=== PATIENT | male | born 1955 | race Caucasian/White ===

== ENCOUNTER 2024-04-23 13:45 | Emergency (ER) | payer MEDICARE, BC, SELFPAY ==
[2024-04-23 13:48] VITALS: BP 128/72; PULSE 73; RESP 16; TEMP 36.5; O2SAT 95
--- NOTE | 2024-04-23 14:34 | ED.GENADULT ---
HPI - General Adult General Chief complaint: Lower Extremity Swelling Stated complaint: L leg swelling Time Seen by Provider: 04/23/24 14:04 History of Present Illness HPI narrative: This 68-year-old male comes in reporting swelling in his left lower extremity. He actually has swelling in both lower extremities but left is greater than right. He states that he did tweak his knee and ankle in the left leg about a week ago. He is ambulatory. He is stating that he lost about 30 lb with change of his diet but noticed over the past week or so that he has gained a few lb. He does have bilateral pedal edema. He does not report any orthopnea or shortness of breath. He denies having any chest pain. The patient is taking Xarelto in management of his chronic atrial fibrillation. Related Data Home Medications ?Medication ?Instructions ?Recorded ?Confirmed [facility] 1 tab PO 04/06/24 04/07/24 levetiracetam 250 mg tablet 750 mg PO BID 04/06/24 04/07/24 loratadine 10 mg tablet (Claritin) 10 mg PO QDAY 04/06/24 04/07/24 losartan 25 mg tablet 50 mg PO QDAY 04/06/24 04/07/24 metoprolol tartrate 25 mg tablet 50 mg PO BID 04/06/24 04/07/24 multivitamin 1 tab PO QAM 04/06/24 04/07/24 rivaroxaban 2.5 mg tablet (Xarelto) 20 mg PO QHS 04/06/24 04/07/24 Previous Rx's ?Medication ?Instructions ?Recorded furosemide 20 mg tablet (Lasix) 20 mg PO DAILY #20 tabs 04/23/24 Allergies Allergy/AdvReac Type Severity Reaction Status Date / Time lisinopril AdvReac Mild Cough Verified 04/07/24 09:50 Review of Systems Status of ROS: Reports: 10 or more systems reviewed and unremarkable except as noted in History and below Narrative: Constitutional: No fevers, no weight gain or loss. Eyes: No discharge. No vision changes. HENT: No congestion, no sore throat, no ear pain. Cardiovascular: No chest pain, no palpitations. Respiratory: No shortness of breath, no wheezes, no cough. Gastrointestinal: No abdominal pain, no vomiting, no diarrhea. Genitourinary: No dysuria, no hematuria. Musculoskeletal: Normal range of motion. Bilateral leg swelling, left greater than right. Skin: No rashes, no pruritis. Neurological: No dizziness, weakness, sensory change, speech change. Endo/Heme/Allergies: No bruising or bleeding. No polydipsia. Pysch: no suicidality, no anxiety, no insomnia. All other systems reviewed and are negative. [facility] Surgical History (Updated 04/02/24 @ 09:25 by Lizzie Pizarro) History of brain surgery (1955) ?Z98.890 - Other specified postprocedural states (ICD-10) History of phacoemulsification of cataract of left eye with intraocular lens implantation (07/30/18) ?Z98.42 - Cataract extraction status, left eye (ICD-10) ?Z96.1 - Presence of intraocular lens (ICD-10) Family History (Updated 04/02/24 @ 09:17 by Lizzie Pizarro) Mother Stroke Social History Smoking Status: Current every day smoker Do you use any of these nicotine containing products: None Second hand tobacco smoke exposure: No How often do you have a drink containing alcohol: never AUDIT-C Alcohol total score: 0 Non-prescribed substance use: denies use Exam Narrative: Exam Narrative: Constitutional: Well-developed, well-nourished, no acute distress. HEENT: Normocephalic, atraumatic. Neck: Normal range of motion. Nontender. Supple. Heart: Regular. No murmurs. Normal rate. Intact distal pulses. Lungs: Clear to auscultation. No chest discomfort. No wheezes, rhonchi, or rales. Abdomen: Normal bowel sounds. Nontender. No rebound tenderness. Genitalia: Deferred. Back: No midline tenderness. Normal range of motion. Extremities: Bilateral large pedal edema, left greater than right. Range of motion is intact. Skin: Intact. No rash. Warm. No erythema or pallor. Neurologic: No altered sensation. No weakness. Alert and oriented. Psychiatric: No suicidality. No anxiety or depression. No insomnia. Nursing notes and vitals signs are reviewed. Const: Vital Signs, click to edit/add: Vital Signs - 24 hr 04/23/24 13:48 Temperature 97.7 F Pulse Rate [Pulse Oximeter] 73 Respiratory Rate 16 Blood Pressure [Ri ght Upper Arm] 128/72 Pulse Oximetry 95 Oxygen Delivery Me thod Room Air Course Vital Signs Vital signs: Initial Vital Signs Temperature 97.7 F 04/23/24 13:48 Temperature Source Temporal Artery Scan 04/23/24 13:48 Pulse Rate 73 04/23/24 13:48 Respiratory Rate 16 04/23/24 13:48 Blood Pressure 128/72 04/23/24 13:48 Blood Pressure Mean 90 04/23/24 13:48 Blood Pressure Position Sitting 04/23/24 13:48 Pulse Oximetry 95 04/23/24 13:48 Oxygen Delivery Method Room Air 04/23/24 13:48 Vital Signs Temperature 97.7 F 04/23/24 13:48 Pulse Rate 73 04/23/24 13:48 Respiratory Rate 16 04/23/24 13:48 Blood Pressure 128/72 04/23/24 13:48 Pulse Oximetry 95 04/23/24 13:48 Oxygen Delivery Method Room Air 04/23/24 13:48 Temperature 97.7 F 04/23/24 13:48 Pulse Rate 73 04/23/24 13:48 Respiratory Rate 16 04/23/24 13:48 Blood Pressure 128/72 04/23/24 13:48 Pulse Oximetry 95 04/23/24 13:48 Oxygen Delivery Method Room Air 04/23/24 13:48 Medical Decision Making MDM Narrative Medical decision making narrative: This patient comes in reporting swelling in his legs. He does have atrial fibrillation and is taking Xarelto. He denies having any chest pain or shortness of breath. He states that he did twist his knee and ankle about about a week ago but does not have any ongoing symptoms. I did discuss the role of ultrasound imaging to rule out blood clot but indicated that he is already therapeutic on a anticoagulant. His symptoms are bilateral and much more typical of pedal edema related to fluid retention. The patient declined any further studies at this time and did receive a prescription for Lasix. I advised him to follow-up with his primary physician for ongoing management. Discharge Plan Discharge Clinical Impression: Pedal edema, Atrial fibrillation Patient Disposition: Home, Self-Care Condition: Stable Additional Instructions: Take Lasix as prescribed and continue other current medications as prescribed. Follow up with MD for ongoing management or return if worsening. Prescriptions: New furosemide [Lasix] 20 mg tablet 20 mg PO DAILY Qty: 20 2RF No Action multivitamin Tablet 1 tab PO QAM loratadine [Claritin] 10 mg tablet 10 mg PO QDAY [facility] 1 tab PO levetiracetam 250 mg tablet 750 mg PO BID losartan 25 mg tablet 50 mg PO QDAY metoprolol tartrate 25 mg tablet 50 mg PO BID Xarelto 2.5 mg tablet 20 mg PO QHS Follow Up/Referrals: Dorothy Pelayo, SALVAGE CLERK, CONSULTING DATABASE ADMINISTRATOR [Primary Care Provider] - Stand Alone Forms: [facility] Info Instructions
[2024-04-23 14:54] VITALS: BP 119/81; PULSE 105; RESP 16
== END 2024-04-23 14:56 | disposition home or self-care (01) ==
LOC: ED 14:56
PROVIDERS: Emergency Provider Emergency Medicine Emergency Medical Services; PCP Nurse Practitioner Family
DX: R60.0 Localized edema (principal); I48.91 Unspecified atrial fibrillation
CPT/HCPCS: 99284

== ENCOUNTER 2024-05-04 11:49 | Outpatient (CLI) | payer MEDICARE, BC, SELFPAY | END 2024-05-04 11:50 | disposition home or self-care (01) | PROVIDERS: PCP Nurse Practitioner Family; Visit Provider Nurse Practitioner Family | DX: R60.0 Localized edema (principal); I10 Essential (primary) hypertension | CPT/HCPCS: 80053; 83880 ==

== ENCOUNTER 2024-05-19 10:25 | Outpatient (RCR) | payer MEDICARE, BC, SELFPAY | END 2024-08-03 14:44 | disposition home or self-care (01) | PROVIDERS: PCP Nurse Practitioner Family; Visit Provider Orthopaedic Surgery | DX: M75.82 Other shoulder lesions, left shoulder (principal); M25.512 Pain in left shoulder; Z51.89 Encounter for other specified aftercare | CPT/HCPCS: 80053; 83735; 83880; 97110; 97161 ==

== ENCOUNTER 2024-06-03 07:58 | Outpatient (CLI) | payer MEDICARE, BC, SELFPAY | END 2024-06-03 07:59 | disposition home or self-care (01) | LOC: RAD 07:59 | PROVIDERS: PCP Nurse Practitioner Family; Visit Provider Nurse Practitioner Family | DX: R60.0 Localized edema (principal); I51.7 Cardiomegaly; I35.0 Nonrheumatic aortic (valve) stenosis; I35.1 Nonrheumatic aortic (valve) insufficiency; I34.0 Nonrheumatic mitral (valve) insufficiency; I48.91 Unspecified atrial fibrillation; R01.1 Cardiac murmur, unspecified | CPT/HCPCS: 93306 ==

== ENCOUNTER 2024-07-11 07:23 | Emergency (ER) | payer MEDICARE, BC, SELFPAY ==
[2024-07-11 07:27] VITALS: BP 141/102; PULSE 84; RESP 20; TEMP 37.1; O2SAT 96; BMI 32.3
--- NOTE | 2024-07-11 08:05 | XR_ITS ---
Patient: SHIREEN AGUILAR Facility:?[facility] Patient ID:?[id number] Site Patient ID:?[id number]. Site :?1955 Study:?XRay-Extremity Right WRIST-07/11/2024 8:45:08 AM Ordering Physician:?Irvin Nielsen Final Report: Indication: Pain and swelling centered at the ulnar styloid. On antibiotics. Technique: A total of three views each of the right hand and right wrist were acquired Comparison: None Findings: Bones: Alignment is normal. No fractures or bone lesions. 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 Soft tissue: Soft tissue swelling. No gas within soft tissues. No radiopaque foreign body Impression: 1. No acute fracture, dislocation or destructive process. 2. Mild arthritic change. 3. Soft tissue swelling. No gas within soft tissues. No radiopaque foreign body. 4. There is no evidence of osteomyelitis by plain film Dictated by Gerry Reyes MD @ 07/11/2024 9:03:46 AM Signed by:?Gerry Reyes MD @07/11/2024 9:03:46 AM (Electronic Signature)
--- NOTE | 2024-07-11 08:05 | XR_ITS ---
Patient: SHIREEN AGUILAR Facility:?[facility] Patient ID:?[id number] Site Patient ID:?[id number]. Site :?1955 Study:?XRay-Extremity Right HAND-07/11/2024 8:44:53 AM Ordering Physician:Cayden Nielsen Final Report: Indication: Pain and swelling centered at the ulnar styloid. On antibiotics. Technique: A total of three views each of the right hand and right wrist were acquired. Comparison: None Findings: Bones: Alignment is normal. No fractures or bone lesions. 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 Soft tissues: Soft tissue swelling. No gas within soft tissues. No radiopaque foreign body Impression: 1. No acute fracture, dislocation or destructive process. 2. Mild arthritic change. 3. Soft tissue swelling. No gas within soft tissues. No radiopaque foreign body. 4. There is no evidence of osteomyelitis by plain film Dictated by Gerry Reyes MD @ 07/11/2024 9:01:13 AM Signed by:?Gerry Reyes MD @07/11/2024 9:01:13 AM (Electronic Signature)
--- OUTSIDE RECORDS SUMMARY | 2024-07-11 08:17 | XMS_ITS | Encounter Summary ---
Author Organization [facility] Address [address] [place] [address] Care Team Providers Care Area Counselor Name Role Phone Margie Dee M.D. Primary Care Provider [phone] Encounter Details Date Type Department Care Team (Late st Contact Info) Description 03/12/2008 Historical Ophthalmology RST OPH Mohini Corona M.D. [address] [place] [address] Social History Tobacco Use Types Packs/Day Years Used Date Smoking Tobacco: Never Assessed Sex and Gender Information Value Date Recorded Sex Assigned at Male 10/06/2022 8:25 PM SILVERING APPLICATOR Legal Sex Male 11:39 PM SILVERING APPLICATOR Gender Identity Male 10/06/2022 8:25 PM SILVERING APPLICATOR Sexual Orientation Straight 10/06/2022 8: 25 PM SILVERING APPLICATOR documented as of this encounter Progress Notes * Mohini Corona M.D. - 03/12/2008 1:07 PM CDT Eye General CHIEF COMPLAINT macular hole HISTORY OF PRESENT ILLNESS Patient notes a blurry spot in center vision of his right eye, noticed about 8 days ago. He has a history of floaters. He has light flashes in his right eye as well. He denies distortion or diplopia. IMPRESSION / REPORT / PLAN OCT: PHOTOS: #1 macular hole right eye #2 mild cataract OU color photos, oct ou FA results: OCT results: right eye: full thickness macular hole; epiretinal membrane; PVD left eye: normal Plan: 20 G PPV MP ICG [id number] gas right eye; 1 week face down. Discussed risks, goals, alternatives, advance directives, and the necessity of other members of the healthcare team participating in the procedure with the patient (or legal territory sales representative and others present during the discussion). The patient understands and wishes to proceed with the procedure. Listed patient for surgery, March 15, 2008, right eye, eye confirmed per patient. Instructions givenorally and written. Discussed gas precautions, including 6 hour stay in the hospital after surgery for an IntraOcularPressure check, and return visit the day following surgery for a post operative check. jap Referred by Gideon Madrigal MD DIAGNOSIS #1 macular hole right eye #2 mild cataract OU CDM Reports - [facility] Id: [id number] Status: Fnl documented in this encounter Plan of Treatment Not on file documented as of this encounter Visit Diagnoses Not on filedocumented in this encounter Additional Health Concerns Infection Onset Date Last Indicated Resolved Time COVID19 Pending 03/08/2024 03/08/2024 03/08/2024 7 :35 AM CDT documented as of this encounter Care Teams Area Counselor Relationship Specialty Start Date End Date Margie Dee M.D. [id number] [place] [phone] PCP - General Family Medicine 03/02/24 documented as of this encounter
--- OUTSIDE RECORDS SUMMARY | 2024-07-11 08:17 | XMS_ITS ---
Author Organization [facility] Address [address] [place] [address] Care Team Providers Care Public Affairs Specialist Name Role Phone Unavailable Unavailable Unavailable Surgery Details Not on file Complications Check Surgery Details section. Procedure Estimated Blood Loss Check Surgery Details section. Procedure Findings Check Surgery Details section. Procedure Specimens Taken Check Surgery Details section.
--- OUTSIDE RECORDS SUMMARY | 2024-07-11 08:17 | XMS_ITS | Clinical Summary ---
Author Organization [facility] Address [address] [place] [id number] Care Team Providers Care Magnetic Prospecting Operator Name Role Phone No Primary/Referring, Phy Primary Care Provider Unavailable Source Comments You are receiving this document as you are listed as the primary care provider,follow-up provider, or the patient has been referred to you for consultation.This is in compliance with the Medicare and[facility] Centercaid EHR Incentive Program,which states Providers who transition their patient to another setting of careor provider of care or refers their patient to another provider of care shouldprovide summary care record for each transition of care or referral. [facility] Allergies No known active allergies Medications Medication Sig Dispensed Refills Start Date End Date Status losartan (COZAAR) 50 MG tablet 12/16/2017 Active omega-3 fatty acids (FISH OIL) 1000 MG capsule Take 2 g by mouth daily. Active metoprolol tartrate (LOPRESSOR) 50 MG tablet Take 1 Tablet (50 mg) by mouth daily. Active rivaroxaban (XARELTO) 20 MG tablet Take 1 Tablet (20 mg) by mouth every evening with a meal. Active multivitamin (THERAGRAN) tablet Take 1 Tablet by mouth daily. Active levETIRAcetam (KEPPRA) 750 MG tablet Take 1 Tablet (750 mg) by mouth two times a day. 180 Tablet 3 06/01/2024 Active Active Problems No known active problems Encounters Date Type Department Care Team Description 06/01/2024 10:00 AM CDT Office Visit Neurology at [facility] [address] [place] [address] Fabio De La Torre MD Seizure disorder (HRC) (Primary Dx) 05/28/2024 Refill Neurology at [address] [place] [address] Fabio De La Torre MD Refill (levETIRAcetam (KEPPRA) 750 MG tablet [Pharmacy Med Name: levETIRAcetam Oral Tablet 750 MG]) from Last 3 Months Social History Tobacco Use Types Packs/Day Years Used Date Smoking Tobacco: Every Day Cigarettes Smokeless Tobacco: Never Tobacco Cessation:Ready to Q uit: Not Asked; Counseling Given: Not Answered Alcohol Use Standard Drinks/Week Comments Not Currently 0 (1 standard drink = 0.6 oz pur e alcohol) Sex and Gender Information Value Date Recorded Sex Assigned at Not on file Gender Identity Not on file Sexual Orientation Not on file Last Filed Vital Signs Vital Sign Reading Time Taken Comments Blood Pressure 127/75 06/01/2024 9:44 AM CDT Pulse 74 06/01/2024 9:44 AM CDT Temperature 36.3 ??C (97.3 ??F) 05/03/2021 12:06 PM C DT Respiratory Rate 14 05/03/2021 12:06 PM CDT Oxygen Saturation 95% 05/03/2021 5:12 AM CDT Inhaled Oxygen Concentration - - Weight 103.4 kg (228 lb) 06/01/2024 9:44 AM CDT Height 175.9 cm (5' 9.25) 04/18/2022 11:38 AM C DT with shoes Body Mass Index 33.43 04/18/2022 11:38 AM CDT Plan of Treatment Upcoming Encounters Date Type Department Care Team (Late st Contact Info) Description 06/01/2025 9:00 AM CDT Appointment Neurology at [address] [place] [address] Fabio De La Torre MD [address] [place] [address] Health Maintenance Due Date Last Done Comments Colon Cancer Screening Plan Due 1955 Hep C Screening (Preventive Services) 1955 Medicare Annual Wellness Visit 1955 Pneumococcal 65+ Yrs (1 - PCV) 1959 Cholesterol 1988 Zoster/Shingles (1 of 2) 2003 Abdominal Aortic Aneurysm (AAA) Screening 2018 COVID-19 Vaccine ( season) 2024 10/11/2022, 01/30/2022, 09/08/2021, Additional history exists Influenza (#1) 2024 DTaP/Tdap/Td (2 - Tdap) 11/04/2025 11/04/2015 RSV (1 - 1-dose 75+ series) 2028 HepA Aged Out No longer eligi ble based on patient's age to complete this topic HepB Aged Out No longer eligi ble based on patient's age to complete this topic Hib Aged Out No longer eligi ble based on patient's age to complete this topic IPV (Polio) Aged Out No longer eligi ble based on patient's age to complete this topic Infant RSV Aged Out No longer eligi ble based on patient's age to complete this topic MCV4 Aged Out No longer eligi ble based on patient's age to complete this topic Care Teams Magnetic Prospecting Operator Relationship Specialty Start Date End Date No Primary/Referring, Riri PCP - General 05/03/21
--- OUTSIDE RECORDS SUMMARY | 2024-07-11 08:17 | XMS_ITS | Clinical Summary ---
Author Organization [facility] Address [address] [place] [address] Care Team Providers Care Roller Skate Assembler Name Role Phone Margie Dee M.D. Primary Care Provider [phone] Source Comments Patient records contain information from all sites at [facility]. For routine questions regarding patient records, call [phone] during business hours, M-F 8:00 AM - 5:00 PM Central Time. Record requests for emergency care only can be directed to [phone] at any time.[facility] Allergies Active Allergy Reactions Criticality Noted Date Comments Lisinopril Cough Low 11/27/2019 Medications * This document contains information received from the source organization and may not represent a complete record from that organization. levETIRAcetam (KEPPRA) 750 mg tablet Take 1 tablet by mouth 2 (two) times a day. 07/31/20 21 Active multivitamin (THERAGRAN) tablet Take 1 tablet by mouth daily. Active vitamins A,C,E-zinc-rn endoscopy per (PRESERVISION AREDS) 7,160 Units-113 mg-100 Units per tablet Take 1 tablet by mouth 2 (two) times a day. Active psyllium (METAMUCIL) powder Take 2 packets by mouth daily. 283 g 12 01/09/20 23 Active Xarelto 20 mg tablet TAKE 1 TABLET EVERY DAY WITH DINNER (APPOINTMENT IS NEEDED) 90 tablet 3 11/18/19 24 Active Additional Information Patient taking differently: 20 mg oral Daily with evening meal, Reported on 03/08/2024 triamcinolone (NASACORT) 55 mcg/actuation nasal sprayIndicatio ns:Rhinitis Acute ADMINISTER 1 SPRAY INTO EACH NOSTRIL DAILY 16.9 mL 1 02/27/20 24 Active polyethylene glycol-electro lytes (GoLYTELY) 236-22.74-6.74 -5.86 gram solutionIndica tions:Screenin g Cancer Colon Drink 1st portion of prep at 6 PM the evening before. 2nd portion must be started 3 hours before and finished 2 hours prior to report time 4000 mL 02/28/20 24 Active nicotine polacrilex (NICORETTE) 2 mg lozenge Dissolve 1 lozenge in mouth (do not bite or chew) every 1 to 2 hours as needed or as directed for nicotine withdrawal symptoms 216 lozenge 3 02/28/20 24 Active metoprolol tartrate (LOPRESSOR) 50 mg tablet Take 1 tablet (50 mg total) by mouth 2 (two) times a day. 180 tablet 3 03/04/20 24 Active benzonatate (TESSALON PERLES) 100 mg capsule Take 1 capsule (100 mg total) by mouth 3 (three) times a day as needed for cough. 15 capsule 03/08/20 24 Active albuterol 90 mcg/actuation inhaler Inhale 2 puffs every 4 (four) hours as needed for shortness of breath. 18 g 03/08/20 24 Active losartan (Cozaar) 50 mg tablet TAKE 1 TABLET (50 MG TOTAL) BY MOUTH DAILY. PATIENT NEEDS LABS FOR FURTHER REFILLS. 90 tablet 06/18/20 24 Active losartan (Cozaar) 50 mg tablet Take 1 tablet (50 mg total) by mouth daily. Patient needs Labs for further refills. 90 tablet 04/01/20 24 024 Discontinued Active Problems Problem Noted Date Diagnosed Date Thoracic Aortic Aneurysm Without Rupture Unspeci fied 04/02/2022 Overview (03/14/2024): Last ECHO 03/30/2022: Mildly enlarged mid ascending aorta diameter of 44 mm. Upper limit of normal based upon age/sex/BSA is approximately 42 mm. Recommended repeat ECHO in 1 year. Hypertrophy Ventricular Left 04/02/2022 Hypertension Essential Primary 02/21/2022 Tobacco Use 02/21/2022 Seizure Disorder 01/30/2022 Atrial Fibrillation Unspecified 01/30/2022 Resolved Problems Problem Noted Date Diagnosed Date Resolved Date Screening Colon Cancer Average Risk 09/21/2019 01/30/2022 Overview (09/21/2019): Added automatically from request for surgery [id number] Encounters Date Type Department Care Team Description 06/17/2024 Refill Department of Family Medicine, [facility], in [address] [id number] Margie Dee M.D. Med Refill from Last 3 Months Immunizations Name Administration Dates Next Due SARS-COV-2 (COVID-19) - PFIZ ER (Discontinued)(12 years or older) 09/08/2021 SARS-COV-2 (COVID-19) - PFIZ ER BIVALENT TS(Discontinued)(12 YEARS OR OLDER) 10/11/2022 SARS-COV-2 (COVID-19) - PFIZ ER TS(Discontinued)(12 years or older) 01/30/2022 Tdap 11/04/2015 Family History Medical History Relation Name Comments Stroke Mother masood Relation Name Status Comments Brother Alive Father Mother masood Social History Tobacco Use Types Packs/Day Years Used Date Smoking Tobacco: Some Days Cigarettes 0.5 20 Smokeless Tobacco: Never Tobacco Cessation:Ready to Q uit: Yes; Counseling Given: Yes Comments:8 cigarettes/day Alcohol Use Standard Drinks/Week Comments Not Currently 0 (1 standard drink = 0.6 oz pur e alcohol) beer once a month [facility] Utilities Answer Date Recorded In the past [address] [facility] [employer], [employer], oil, or water [employer] threatened to shut off services in your home? No 11/12/2023 Humiliation, Afraid, Rape, and Kick questionnair e Answer Date Recorded Within the last year, have y ou been afraid of your partner or ex-partner? No 10/06/2022 Within the last year, have y ou been humiliated or emotionally abused in other ways by your partner or ex-partner? No Within the last year, have y ou been kicked, hit, slapped, or otherwise physically hurt by your partner or ex-partner? No 10/06/2022 Within the last year, have y ou been raped or forced to have any kind of sexual activity by your partner or ex-partner? No 10/06/2022 Social Connection and Isolat ion Panel [NHANES] Answer Date Recorded In a typical week, how many times do you talk on the phone with family, friends, or neighbors? More than three times a week 10/06/2022 How often do you get togethe r with friends or relatives? Twice a week 10/06/2022 How often do you attend chur or uatsdin services? More than 4 times per year 10/06/2022 Do you belong to any clubs o r organizations such as buddhism groups, unions, fraternal or athletic groups, or school groups? No 10/06/2022 How often do you attend meet ings of the clubs or organizations you belong to? Never 10/06/2022 Are you , , di vorced, , never , or living with a partner? 10/06/2022 AUDIT-C Answer Date Recorded Q1: How often do you have a drink containing alc ohol? Never 10/06/2022 Average Number of Drinks Not on file 023 Frequency of Binge Drinking Not on file 09/23 Overall Financial Resource Strain (CARDIA) Answe r Date Recorded How hard is it for you to pa y for the very basics like food, housing, medical care, and heating? Not very hard 10/06/2022 PHQ-2 Answer Date Recorded PHQ-2 Score 0 10/21/2023 [facility] - Occupational Stress Questionnaire Answer Date Recorded Do you feel stress - tense, restless, nervous, or anxious, or unable to sleep at night because your mind is troubled all the time - these days? Not at all 10/06/2022 Exercise Vital Sign Answer Date Recorde d On average, how many days pe r week do you engage in moderate to strenuous exercise (like a brisk walk)? 0 days 11/12/2023 On average, how many minutes do you engage in exercise at this level? 0 min 11/12/2023 Hunger Vital Sign Answer Date Recorded Within the past 12 months, y ou worried that your food would run out before you got the money to buy more. Never true 11/12/19 24 Within the past 12 months, t he food you bought just didn't last and you didn't have money to get more. Never true 11/12/2023 PRAPARE - Transportation Answer Date Re corded In the past 12 months, has l ack of transportation kept you from medical appointments or from getting medications? No 10/25 In the past 12 months, has l ack of transportation kept you from meetings, work, or from getting things needed for daily living? No 11/12/2023 Nutrition Answer Date Recorded On average, how many serving s of fruits and vegetables do you eat per day (serving size is equal to 1 cup or approximately the size of a tennis ball)? 0-2 11/12/2023 Dental Answer Date Recorded Dental: Regular Dentist No 10/06/19 Employment Answer Date Recorded Employment status Retired 11/12/2023 Housing Stability Answer Date Recorded What is your living situation today? [facility] 11/12/2023 Education Answer Date Recorded What is the highest level of school you have completed or the highest degree you have received? 12th grade 10/06/2022 Sex and Gender Information Value Date Recorded Sex Assigned at Male 10/06/2022 8:25 PM MARKETING AUTOMATION SPECIALIST Legal Sex Male 11:39 PM MARKETING AUTOMATION SPECIALIST Gender Identity Male 10/06/2022 8:25 PM MARKETING AUTOMATION SPECIALIST Sexual Orientation Straight 10/06/2022 8: 25 PM MARKETING AUTOMATION SPECIALIST Last Filed Vital Signs Vital Sign Reading Time Taken Comments Blood Pressure 159/92 03/08/2024 7:00 AM CDT Pulse 89 03/08/2024 7:00 AM CDT Temperature 35.6 ??C (96.1 ??F) 03/08/2024 6:38 AM CD T Respiratory Rate 16 02/28/2024 10:26 AM CDT Oxygen Saturation 95% 03/08/2024 7:00 AM CDT Inhaled Oxygen Concentration - - Weight 106 kg (232 lb 12.9 oz) 03/08/2024 6:40 A M CDT Height 177.8 cm (5' 10) 03/08/2024 6:40 AM CDT Body Mass Index 33.4 03/08/2024 6:40 AM CDT Plan of Treatment Health Maintenance Due Date Last Done Comments Abdominal Aortic Aneurysm (A AA) Screen 1953 CT Colonography 1953 Cologuard 1953 FIT 1953 Hepatitis C Screening 1955 Pneumococcal vaccine (65+ ye ars) (1 of 2 - PCV) 1959 Zoster Vaccines (1 of 2) 2003 Colonoscopy 01/10/2015 01/10/2005 Colorectal Cancer Screening 01/10/2015 Creatinine Level (Kidney Fun ction Test) 10/11/2023 10/11/2022, 01/25/2022, 09/14/2019, Additional history exists Potassium Level 10/11/2023 10/11/2022, 05/0 01/2022, 09/14/2019, Additional history exists Sodium Level 10/11/2023 10/11/2022, 05/0 01/2022, 09/14/2019, Additional history exists COVID-19 Vaccine (6 - 2023-2 5 season) 2024 10/11/2022, 01/30/2022, 09/08/2021, Additional history exists Influenza Vaccine (#1) 2024 Visit: Medicare Annual Wellness 11/16/2024 4, 10/11/2022 Fasting Glucose for Diabetes Screening 12/16/2024 12/17/2023, 10/11/2022, 01/25/2022 Office Visit for Blood Press ure Check / Re-check 02/27/2025 02/28/2024 Visit: Chronic Disease, age 18+ 02/27/2025 4 DTaP,Tdap,and Td Vaccines (2 - Td or Tdap) 11/04/2025 11/04/2015 Depression Screening (Annual PHQ-2) Completed 10/21/2023, 10/21/2023 Fall Risk Screen (Annual) Completed 10/21/2023 Procedures Procedure Name Priority Date/Time Associated Diagnosis Comments HEMOGLOBIN A1C, B Routine 12/17/2023 9:3 4 AM CDT Hyperglycemia BASIC METABOLIC PANEL, S/P Routine 10/11/2022 2:11 PM MARKETING AUTOMATION SPECIALIST Hypertension Essential Primary from Last 3 Months or Most Recently Relevant to Health Maintenance Results * (ABNORMAL) Hemoglobin A1c (12/17/2023 9:34 AM CDT) Hemoglobin A1c, B 6.0(H) 4.2 - 5.6 % 12/17/2023 9:56 AM CDT CNFL Comment: Hemoglobin A1c values of 5.7-6.4 percent indicate an increased risk for developing diabetes mellitus. In diabetic patients, HbA1c goals should be discussed with healthcare provider. Blood (Blood, Venous) 12/17/2023 9:34 AM CDT 12/17/2023 9:40 AM CDT us Margie Dee M.D. LAB BLOOD ADD-ON Final Resu lt [facility] [address] [place] [address], [facility] CNFL [facility] [place] [address] * Basic Metabolic Panel (10/11/2022 2:11 PM MARKETING AUTOMATION SPECIALIST) Potassium, P 3.9 3.6 - 5.2 mmol/L 10/11/2022 2:49 PM MARKETING AUTOMATION SPECIALIST CNFL Sodium, P 135 135 - 145 mmol/L 10/11/2022 2:49 PM MARKETING AUTOMATION SPECIALIST CNFL Chloride, P 98 98 - 107 mmol/L 10/11/2022 2:49 PM MARKETING AUTOMATION SPECIALIST CNFL Bicarbonate, P 29 22 - 29 mmol/L 10/11/2022 2:49 PM MARKETING AUTOMATION SPECIALIST CNFL Anion Gap, P 8 7 - 15 10/11/2022 2:49 PM MARKETING AUTOMATION SPECIALIST CNFL BUN (Blood Urea Nitrogen), P 19 8 - 24 mg/dL 10/11/2022 2:49 PM MARKETING AUTOMATION SPECIALIST CNFL Creatinine 0.96 0.74 - 1.35 mg/dL 10/11/2022 2:49 PM MARKETING AUTOMATION SPECIALIST CNFL Estimated GFR (eGFR) 86 >=60 mL/min/BSA 10/11/2022 2:49 PM MARKETING AUTOMATION SPECIALIST CNFL Comment: Estimated GFR calculated using the 2020 CKD_EPI creatinine equation. Calcium, Total, P 9.3 8.8 - 10.2 mg/dL 10/11/2022 2:49 PM MARKETING AUTOMATION SPECIALIST CNFL Glucose, P 106 70 - 140 mg/dL 10/11/2022 2:49 PM MARKETING AUTOMATION SPECIALIST CNFL Blood (Blood, Venous) 10/11/2022 2:11 PM MARKETING AUTOMATION SPECIALIST 10/11/2022 2:17 PM MARKETING AUTOMATION SPECIALIST us Nadia Coles M.D. LAB BLOOD ADD-ON Final Res ult [facility] [address] [place] [address], [place] CNFL [facility] [place] [id number] [place] [id number] from Last 3 Months or Most Recently Relevant to Health Maintenance Insurance [facility] [place] [address] MEDICARE Advance Directives For more information, please contact: [phone] * Full Code (Latest Code Status on File) Date Activated Date Inactivated Comments 11/27/2019 9:04 AM 11/27/2019 11:58 AM Question Answer Comments Full Code: Discussed Care Teams Roller Skate Assembler Relationship Specialty Start Date End Date Margie Dee M.D. [address] [phone] PCP - General Family Medicine 03/02/24
--- OUTSIDE RECORDS SUMMARY | 2024-07-11 08:17 | XMS_ITS | Encounter Summary ---
Author Organization [facility] Address [address] [place] [address] Care Team Providers Care Supervisor Inspecting Name Role Phone Margie Dee M.D. Primary Care Provider [phone] Encounter Details Date Type Department Care Team (Late st Contact Info) Description 05/18/2008 Historical Ophthalmology RST OPH Mohini Corona M.D. [address] [place] [phone] Social History Tobacco Use Types Packs/Day Years Used Date Smoking Tobacco: Never Assessed Sex and Gender Information Value Date Recorded Sex Assigned at Male 10/06/2022 8:25 PM PROGRAM TRAINER Legal Sex Male 11:39 PM PROGRAM TRAINER Gender Identity Male 10/06/2022 8:25 PM PROGRAM TRAINER Sexual Orientation Straight 10/06/2022 8: 25 PM PROGRAM TRAINER documented as of this encounter Progress Notes * Mohini Corona M.D. - 05/18/2008 12:06 PM CDT Eye Postoperative MULTI-VISIT DOCUMENT This document contains multiple patient visits and is available for review in Document Viewer. CDM Reports - EYEPO Id: [id number] Status: Fnl documented in this encounter Plan of Treatment Not on file documented as of this encounter Visit Diagnoses Not on filedocumented in this encounter Additional Health Concerns Infection Onset Date Last Indicated Resolved Time COVID19 Pending 03/08/2024 03/08/2024 03/08/2024 7 :35 AM CDT documented as of this encounter Care Teams Supervisor Inspecting Relationship Specialty Start Date End Date Margie Dee M.D. [address] [place] [phone] PCP - General Family Medicine 03/02/24 documented as of this encounter
--- OUTSIDE RECORDS SUMMARY | 2024-07-11 08:17 | XMS_ITS | Encounter Summary ---
Author Organization [facility] Address [address] [place] [address] Care Team Providers Care Gusset Ripper Name Role Phone No Primary/Referring, Phy Primary Care Provider Unavailable Reason for Visit * Reason Comments Follow-up Encounter Details Date Type Department Care Team (Latest Contact Info) Description 06/01/2024 10:00 AM CDT Office Visit Neurology at [facility] [address] [facility]. [place], [place] [phone] Fabio De La Torre MD [address] [place] [address] Seizure disorder (HRC) (Primary Dx) Social History Tobacco Use Types Packs/Day Years Used Date Smoking Tobacco: Every Day Cigarettes Smokeless Tobacco: Never Alcohol Use Standard Drinks/Week Comments Not Currently 0 (1 standard drink = 0.6 oz pur e alcohol) Sex and Gender Information Value Date Recorded Sex Assigned at Not on file Gender Identity Not on file Sexual Orientation Not on file documented as of this encounter Last Filed Vital Signs Vital Sign Reading Time Taken Comments Blood Pressure 127/75 06/01/2024 9:44 AM CDT Pulse 74 06/01/2024 9:44 AM CDT Temperature - - Respiratory Rate - - Oxygen Saturation - - Inhaled Oxygen Concentration - - Weight 103.4 kg (228 lb) 06/01/2024 9:44 AM CDT Height - - Body Mass Index 33.43 04/18/2022 11:38 AM CDT documented in this encounter Patient Instructions * Patient Instructions* Fabio De La Torre MD - 06/01/2024 10:00 AM CDT Will keep your medication the same and follow up in a year. documented in this encounter Progress Notes * Fabio De La Torre MD - 06/01/2024 10:00 AM CDT Patient Information: Junior Reeves 69 y.o. Date of visit: 06/01/24 IMPRESSION: Single nocturnal seizure RECOMMENDATIONS: Continue Keppra. RTC 1 year Fabio De La Torre MD 06/01/2024, 9:53 AM Department of Neurology [facility] CHIEF COMPLAINT: Chief Complaint Patient presents with Follow-up seizure INTERVAL HISTORY: Single seizure in 2020. No recurrence. Tolerating Keppra. No side effects. No seizure related concerns. REVIEW OF SYSTEMS: All other systems negative except for that mentioned in the history of present illness. MEDICATIONS: Current Outpatient Medications Medication Sig levETIRAcetam (KEPPRA) 750 MG tablet take 1 tablet twice daily losartan (COZAAR) 50 MG tablet metoprolol tartrate (LOPRESSOR) 50 MG tablet Take 1 Tablet (50 mg) by mouth daily. multivitamin (THERAGRAN) tablet Take 1 Tablet by mouth daily. omega-3 fatty acids (FISH OIL) 1000 MG capsule Take 2 g by mouth daily. (Patient not taking: Reported on 06/01/2024) rivaroxaban (XARELTO) 20 MG tablet Take 1 Tablet (20 mg) by mouth every evening with a meal. EXAMINATION: Vitals: 06/01/24 0944 BP: 127/75 Pulse: 74 228 lb (103.4 kg) Estimated body mass index is 33.43 kg/m?? as calculated from the following: Height as of 04/18/22: 5' 9.25 (1.759 m). Weight as of this encounter: 228 lb (103.4 kg). General appearance: No acute distress Mental status: Alert, oriented, speech is fluent PAST MEDICAL FAMILY AND SOCIAL HISTORIES: Past Medical History: Diagnosis Date BP (high blood pressure) (HRC) Caries Heart murmur Social History Socioeconomic History Marital status: Spouse name: Not on file Number of children: Not on file Years of education: Not on file Highest education level: Not on file Occupational History Not on file Tobacco Use Smoking status: Every Day Types: Cigarettes Smokeless tobacco: Never Vaping Use Vaping status: Never Used Substance and Sexual Activity Alcohol use: Not Currently Drug use: Not on file Sexual activity: Not on file Other Topics Concern Not on file Social History Narrative Not on file Social Determinants of Health Financial Resource Strain: Low Risk (10/06/2022) Received from [facility] Overall Financial Resource Strain (CARDIA) Difficulty of Paying Living Expenses: Not very hard Food Insecurity: No Food Insecurity (11/12/2023) Received from [facility] Hunger Vital Sign Worried About Running Out of Food in the Last Year: Never true Ran Out of Food in the Last Year: Never true Transportation Needs: No Transportation Needs (11/12/2023) Received from [facility] PRAPARE - Transportation Lack of Transportation (Medical): No Lack of Transportation (Non-Medical): No Physical Activity: Inactive (11/12/2023) Received from [facility] Exercise Vital Sign Days of Exercise per Week: 0 days Minutes of Exercise per Session: 0 min Stress: No Stress Concern Present (10/06/2022) Received from [facility] [place] [facility] [place] [facility] - Occupational Stress Questionnaire Feeling of Stress : Not at all Social Connections: Moderately Integrated (10/06/2022) Received from [facility] Social Connection and Isolation Panel [NHANES] Frequency of Communication with Friends and Family: More than three times a week Frequency of Social Gatherings with Friends and Family: Twice a week Attends Yarsani Services: More than 4 times per year Active Member of Clubs or Organizations: No Attends Club or Organization Meetings: Never Marital Status: Intimate Partner Violence: Not At Risk (10/06/2022) Received from [facility] Humiliation, Afraid, Rape, and Kick questionnaire Fear of Current or Ex-Partner: No Emotionally Abused: No Physically Abused: No Sexually Abused: No Housing Stability: Low Risk (11/12/2023) Received from [facility] Housing Stability What is your living situation today?: I have a steady place to live No family history on file. documented in this encounter Nursing Notes * Kaylee Gar - 06/01/2024 10:00 AM CDT Received from [place] [facility]. Faxed to [employer] at [phone]. Confirmation received. Form sent to scanning. Thanks. Kaylee Gar 06/02/2024, 7:13 AM documented in this encounter Plan of Treatment Upcoming Encounters Date Type Department Care Team (Late st Contact Info) Description 06/01/2025 9:00 AM CDT Appointment Neurology at [facility] [address] [facility] [place] [address] Fabio De La Torre MD [address] [place] [address] documented as of this encounter Visit Diagnoses Diagnosis Seizure disorder (HRC)- Primary Unspecified epilepsy without mention of intractable epilepsy documented in this encounter Care Teams Gusset Ripper Relationship Specialty Start Date End Date No Primary/Referring, Phy PCP - General 05/03/21 documented as of this encounter
--- OUTSIDE RECORDS SUMMARY | 2024-07-11 08:17 | XMS_ITS | Encounter Summary ---
Author Organization [facility] Address [address] [place] [address] Care Team Providers Care Jacquard Loom Heddles Tier Name Role Phone No Primary/Referring, Phy Primary Care Provider Unavailable Reason for Visit * Reason Comments Refill levETIRAcetam (KEPPR A) 750 MG tablet [Pharmacy Med Name: levETIRAcetam Oral Tablet 750 MG] Encounter Details Date Type Department Care Team (Late st Contact Info) Description 05/28/2024 Refill Neurology at [facility] [place] [address] [facility] [place] [address] Shania Munguia MD [address] [place], [place] [phone] Refill (levETIRAcetam (KEPPRA) 750 MG tablet [Pharmacy Med Name: levETIRAcetam Oral Tablet 750 MG]) Social History Tobacco Use Types Packs/Day Years Used Date Smoking Tobacco: Every Day Cigarettes Smokeless Tobacco: Never Alcohol Use Standard Drinks/Week Comments Not Currently 0 (1 standard drink = 0.6 oz pur e alcohol) Sex and Gender Information Value Date Recorded Sex Assigned at Not on file Gender Identity Not on file Sexual Orientation Not on file documented as of this encounter Nursing Notes * Anne-Marie Lawler, RN - 05/28/2024 8:29 AM CDT levETIRAcetam (KEPPRA) 750 MG tablet refilled per RN's standing order. Last refilled on 03/16/24 for qty 180, refills 0. Last OV with Dr. Nils munguia on 04/09/23 states: Continue Keppra 750 mg BID Next appointment: 06/01/24 Anne-Marie Lawler RN 05/28/2024, 8:29 AM * Tamara Quinones Xrwcomm - 05/28/2024 2:36 AM CDT levETIRAcetam (KEPPRA) 750 MG tablet [Pharmacy Med Name: levETIRAcetam Oral Tablet 750 MG] Miscellaneous - 12 Month Visit 1 -> A qualifying visit was not found within the last 2 years. Last qualifying visit: None Next scheduled visit: None Last ordered by SHANIA MUNGUIA N: 03/16/2024 (73 days ago) QTY: 180, Refills: 0, Sig: take 1 tablettwice daily (unchanged) [employer] Embedded Refills, Reference: [id number], 05/28/2024 2:36:35 AM CDT, Pool: LUZMA NEURO REFILL RN ([id number]) documented in this encounter Plan of Treatment Upcoming Encounters Date Type Department Care Team (Late st Contact Info) Description 06/01/2025 9:00 AM CDT Appointment Neurology at [address] [place] [address] Shania Munguia MD [address] [facility] [place] [place] [phone] documented as of this encounter Visit Diagnoses Not on filedocumented in this encounter Care Teams Jacquard Loom Heddles Tier Relationship Specialty Start Date End Date No Primary/Referring, Phy PCP - General 05/03/21 documented as of this encounter
--- OUTSIDE RECORDS SUMMARY | 2024-07-11 08:17 | XMS_ITS | Encounter Summary ---
Author Organization [facility] [address] [place] [address] Care Team Providers Care Jack Of All Trades Name Role Phone No Primary/Referring, Phy Primary Care Provider Unavailable Encounter Details Date Type Department Care Team (Late st Contact Info) Description 09/30/[address], [address] [place] [address] [facility] MEDICINE PATIENT AUTH TO [facility] CHART Social History Tobacco Use Types Packs/Day Years Used Date Smoking Tobacco: Every Day Smokeless Tobacco: Never Sex and Gender Information Value Date Recorded Sex Assigned at Not on file Gender Identity Not on file Sexual Orientation Not on file documented as of this encounter Plan of Treatment Upcoming Encounters Date Type Department Care Team (Late st Contact Info) Description 06/01/2025 9:00 AM CDT Appointment Neurology at [facility] [address] [facility] [place] [address] Fabio De La Torre MD 295 [place] [address] documented as of this encounter Visit Diagnoses Not on filedocumented in this encounter Care Teams Jack Of All Trades Relationship Specialty Start Date End Date No Primary/Referring, Palmery PCP - General 05/03/21 documented as of this encounter
--- OUTSIDE RECORDS SUMMARY | 2024-07-11 08:17 | XMS_ITS | Encounter Summary ---
Author Organization [facility] Address [address] [place] [address] Care Team Providers Care Steward/Stewardess Second Name Role Phone Margie Dee M.D. Primary Care Provider [phone] Reason for Visit * Reason Comments Med Refill Encounter Details Date Type Department Care Team (Late st Contact Info) Description 06/17/2024 Refill Department of Family Medicine, [facility], in [address] [phone] Margie Dee M.D. [address] [place] [phone] Med Refill Social History Tobacco Use Types Packs/Day Years Used Date Smoking Tobacco: Some Days Cigarettes 0.5 20 Smokeless Tobacco: Never Comments:8 cigarettes/day Alcohol Use Standard Drinks/Week Comments Not Currently 0 (1 standard drink = 0.6 oz pur e alcohol) beer once a month [facility] Utilities Answer Date Recorded In the past 12 months has [employer], gas, oil, or water [employer] threatened to shut off services in your [...] How often do you attend chur or muslim services? More than 4 times per year 10/06/2022 Do you belong to any clubs o r organizations such as bahai groups, unions, fraternal or athletic groups, or [...] Answer Date Recorded PHQ-2 Score 0 10/21/2023 [facility] Health - Occupational Stress Questionnaire Answer Date [...] your living situation today? I have a [facility] place to live 11/12/2023 Education Answer Date Recorded What is the highest level of school you have completed or the highest degree you have received? 12th grade 10/06/2022 Sex and Gender Information Value Date Recorded Sex Assigned at Male 10/06/2022 8:25 PM JIG HAND Legal Sex Male 11:39 PM JIG HAND Gender Identity Male 10/06/2022 8:25 PM JIG HAND Sexual Orientation Straight 10/06/2022 8: 25 PM JIG HAND documented as of this encounter Plan of Treatment Not on file documented as of this encounter Visit Diagnoses Not on filedocumented in this encounter Care Teams Steward/Stewardess Second Relationship Specialty Start Date End Date Margie Dee M.D. SAMI: [phone] [address] [place] [phone] PCP - General Family Medicine 03/02/24 documented as of this encounter
--- OUTSIDE RECORDS SUMMARY | 2024-07-11 08:17 | XMS_ITS | Referral Summary ---
Author Organization [facility] Address [address] [place] [address] Care Team Providers Care Receiving Room Clerk Name Role Phone Margie Dee M.D. Primary Care Provider [phone] Source Comments Patient records contain information from all sites at [facility]. For routine questions regarding patient records, call [phone] during business hours, M-F 8:00 AM - 5:00 PM Central Time. Record requests for emergency care only can be directed to [phone] at any time.[facility] Encounters Date Type Department Care Team Description 06/17/2024 Refill Department of Family Medicine, [facility], in [address] [phone] Margie Dee M.D. Med Refill from Last 3 Months Allergies Active Allergy Reactions Criticality Noted Date Comments Lisinopril Cough Low 11/27/2019 Medications * This document contains information received from the source organization and may not represent a complete record from that organization. levETIRAcetam (KEPPRA) 750 mg tablet Take 1 tablet by mouth 2 (two) times a day. 07/31/20 21 Active multivitamin (THERAGRAN) tablet Take 1 tablet by mouth daily. Active vitamins A,C,E-zinc-coppersmith helper per (PRESERVISION AREDS) 7,160 Units-113 mg-100 Units [...] (09/21/2019): Added automatically from request for surgery [id number] Immunizations Name Administration Dates Next Due SARS-COV-2 (COVID-19) - PFIZ ER (Discontinued)(12 years or older) 09/08/2021 SARS-COV-2 (COVID-19) - PFIZ ER BIVALENT TS(Discontinued)(12 YEARS OR OLDER) 10/11/2022 SARS-COV-2 (COVID-19) - PFIZ ER TS(Discontinued)(12 years or older) 01/30/2022 Tdap 11/04/2015 Social History Tobacco Use Types Packs/Day Years Used Date Smoking Tobacco: Some Days Cigarettes 0.5 20 Smokeless Tobacco: Never Tobacco Cessation:Ready to Q uit: Yes; Counseling Given: Yes Comments:8 cigarettes/day Alcohol Use Standard Drinks/Week Comments Not Currently 0 (1 standard drink = 0.6 oz pur e alcohol) beer once a month [facility] Dizmoities Answer Date Recorded In the past 12 months has [facility] [employer], gas, oil, or water [employer] threatened to shut off services in your [...] 10/06/2022 How often do you attend chur ch or hinduism services? More than 4 times per year 10/06/2022 Do you belong to any clubs o r organizations such as yazidi groups, unions, fraternal or athletic groups, or [...] Answer Date Recorded PHQ-2 Score 0 10/21/2023 [facility] - Occupational Stress Questionnaire Answer Date [...] your living situation today? I have a [facility] place to live 11/12/2023 Education Answer Date Recorded What is the highest level of school you have completed or the highest degree you have received? 12th grade 10/06/2022 Sex and Gender Information Value Date Recorded Sex Assigned at Male 10/06/2022 8:25 PM SLEEP LAB TECHNICIAN Legal Sex Male 11:39 PM SLEEP LAB TECHNICIAN Gender Identity Male 10/06/2022 8:25 PM SLEEP LAB TECHNICIAN Sexual Orientation Straight 10/06/2022 8: 25 PM SLEEP LAB TECHNICIAN Last Filed Vital Signs Vital Sign Reading [...] 03/08/2024 6:40 AM CDT Plan of Treatment Not on file Procedures Procedure Name Priority Date/Time Associated Diagnosis Comments HEMOGLOBIN A1C, B Routine 12/17/2023 9:3 4 AM CDT Hyperglycemia BASIC METABOLIC PANEL, S/P Routine 10/11/2022 2:11 PM SLEEP LAB TECHNICIAN Hypertension Essential Primary from Last 3 Months [...] M.D. LAB BLOOD ADD-ON Final Resu lt [facility] [address] [place] [address], [facility] CN[place] [facility] [address] * Basic Metabolic Panel (10/11/2022 2:11 PM SLEEP LAB TECHNICIAN) Potassium, P 3.9 3.6 - 5.2 mmol/L 10/11/2022 2:49 PM SLEEP LAB TECHNICIAN CNFL Sodium, P 135 135 - 145 mmol/L 10/11/2022 2:49 PM SLEEP LAB TECHNICIAN CNFL Chloride, P 98 98 - 107 mmol/L 10/11/2022 2:49 PM SLEEP LAB TECHNICIAN CNFL Bicarbonate, P 29 22 - 29 mmol/L 10/11/2022 2:49 PM SLEEP LAB TECHNICIAN CNFL Anion Gap, P 8 7 - 15 10/11/2022 2:49 PM SLEEP LAB TECHNICIAN CNFL BUN (Blood Urea Nitrogen), P 19 8 - 24 mg/dL 10/11/2022 2:49 PM SLEEP LAB TECHNICIAN CNFL Creatinine 0.96 0.74 - 1.35 mg/dL 10/11/2022 2:49 PM SLEEP LAB TECHNICIAN CNFL Estimated GFR (eGFR) 86 >=60 mL/min/BSA 10/11/2022 2:49 PM SLEEP LAB TECHNICIAN CNFL Comment: Estimated GFR calculated using the 2020 CKD_EPI creatinine equation. Calcium, Total, P 9.3 8.8 - 10.2 mg/dL 10/11/2022 2:49 PM SLEEP LAB TECHNICIAN CNFL Glucose, P 106 70 - 140 mg/dL 10/11/2022 2:49 PM SLEEP LAB TECHNICIAN CNFL Blood (Blood, Venous) 10/11/2022 2:11 PM SLEEP LAB TECHNICIAN 10/11/2022 2:17 PM SLEEP LAB TECHNICIAN us Nadia Coles M.D. LAB BLOOD ADD-ON Final Res ult [facility] [address] [place] [address], [facility] in [address] [address] from Last 3 Months or Most Recently Relevant to Health Maintenance Insurance [facility] MEDICARE Advance Directives For more information, please contact: [phone] * Full Code (Latest Code Status on File) Date Activated Date Inactivated Comments 11/27/2019 9:04 AM 11/27/2019 11:58 AM Question Answer Comments Full Code: Discussed Care Teams Receiving Room Clerk Relationship Specialty Start Date End Date Margie Dee M.D. [address] [place] [phone] PCP - General Family Medicine 03/02/24
--- OUTSIDE RECORDS SUMMARY | 2024-07-11 08:17 | XMS_ITS | Encounter Summary ---
Author Organization [facility] Address [address] [place] [address] Care Team Providers Care Deliverer Pharmacy Name Role Phone Margie Dee M.D. Primary Care Provider [phone] Encounter Details Date Type Department Care Team (Late st Contact Info) Description 03/24/2024 Clinical Communication [facility] in [address] [phone] Cristine Ruiz, RKennedyN. [address] [place] [phone] Social History Tobacco Use Types Packs/Day Years Used Date Smoking Tobacco: Some Days Cigarettes 0.5 20 Smokeless Tobacco: Never Comments:8 cigarettes/day Alcohol Use Standard Drinks/Week Comments Not Currently 0 (1 standard drink = 0.6 oz pur e alcohol) beer once a month [facility] Utilities Answer Date Recorded In the past [address] [facility] [employer], gas, oil, or water [employer] threatened to shut off services in your [...] How often do you attend chur or jain services? More than 4 times per year [...] Answer Date Recorded PHQ-2 Score 0 10/21/2023 [facility] Occup[facility] ional Health - Occupational [...] your living situation today? I have a [facility] place to live 11/12/2023 Education Answer Date Recorded What is the highest level of school you have completed or the highest degree you have received? 12th grade 10/06/2022 Sex and Gender Information Value Date Recorded Sex Assigned at Male 10/06/2022 8:25 PM FLOWER PLANTER Legal Sex Male 11:39 PM FLOWER PLANTER Gender Identity Male 10/06/2022 8:25 PM FLOWER PLANTER Sexual Orientation Straight 10/06/2022 8: 25 PM FLOWER PLANTER documented as of this encounter Miscellaneous Notes * Telephone Encounter - Cristine Ruiz R.N. - 03/24/2024 8:23 AM CDT Patient calls to get an injection in his left shoulder with Cristine. Last injection 12/24/23. He states he was doing well, shoulder was feeling good and then he kind of forgot to take it easy and went backto his regular use and reinjured it, felt it coming on yesterday and throughout day worsened. He put heat on last night and today it is a little better but far from functional. He is not able to raise arm away from body without pain. He denies numbness and tingling in arm. He is encouraged to use OTC pain meds according to package instructions, ice and rest. Will transfer to DOS to schedule next available with ortho for another injection. He states after this injectionhe is retiring. I let DOS know to add him to the cancellation list as he was given Aug time for next available. N I let him know that if the pain becomes to unbearable to call back for a PC, SDC or head to ED for pain control until can be seen by ortho for injection. Patient verbalized understanding, no other questions at this time. Warm transfer to [facility] was completed. documented in this encounter Plan of Treatment Not on file documented as of this encounter Visit Diagnoses Not on filedocumented in this encounter Care Teams Deliverer Pharmacy Relationship Specialty Start Date End Date Margie Dee M.D. [address] [place] [phone] PCP - General Family Medicine 03/02/24 documented as of this encounter
--- OUTSIDE RECORDS SUMMARY | 2024-07-11 08:18 | XMS_ITS | Encounter Summary ---
Author Organization [facility] Address [address] [place] [address] Care Team Providers Care Facility Mechanic Name Role Phone No Primary/Referring, Phy Primary Care Provider Unavailable Encounter Details Date Type Department Care Team (Late st Contact Info) Description 11/17/2014 Correspondence None No Primary/Referring, Phy STOP BANG DOT MITZI PROTOCOL Social History Tobacco Use Types Packs/Day Years [...] AM CDT Appointment Neurology at [facility] [address] [place] [address] Fabio De La Torre MD [address] [place], [place] [phone] documented as of this encounter Visit Diagnoses Not on filedocumented in this encounter Care Teams Facility Mechanic Relationship Specialty Start Date End Date No Primary/Referring, Phy PCP - General 05/03/21 documented as of this encounter
--- OUTSIDE RECORDS SUMMARY | 2024-07-11 08:18 | XMS_ITS | Encounter Summary ---
Author Organization [facility] Address [address] [place] [address] Care Team Providers Care Tanker Driver Name Role Phone No Primary/Referring, Phy Primary Care Provider Unavailable Encounter Details Date Type Department Care Team (Late st Contact Info) Description 02/09/2014 Correspondence [facility] Occupational and Environmental Medicine [address] [place] [address] REFERRAL AND AUTH Social History Tobacco Use Types Packs/Day Years [...] AM CDT Appointment Neurology at [facility] [address] [facility] [place] [address] Fabio De La Torre MD 295 [place] [address] documented as of this encounter Visit Diagnoses Not on filedocumented in this encounter Care Teams Tanker Driver Relationship Specialty Start Date End Date No Primary/Referring, Phy PCP - General 05/03/21 documented as of this encounter
--- OUTSIDE RECORDS SUMMARY | 2024-07-11 08:18 | XMS_ITS | Encounter Summary ---
Author Organization [facility] [address] [place] [address] Care Team Providers Care Manager Of Human Resources Name Role Phone No Primary/Referring, Phy Primary Care Provider Unavailable Encounter Details Date Type Department Care Team (Latest Contact Info) Description 09/30/2018 Correspondence [facility] [address] [place] [address], [address] [place] [address] REFERRAL AND AUTHORIZATION Social History Tobacco Use Types Packs/Day Years [...] 9:00 AM CDT Appointment Neurology at [facility] [address] [facility] [place] [address] Fabio De La Torre MD 295 [place] [address] documented as of this encounter Visit Diagnoses Not on filedocumented in this encounter Care Teams Manager Of Human Resources Relationship Specialty Start Date End Date No Primary/Referring, Phy PCP - General 05/03/21 documented as of this encounter
--- OUTSIDE RECORDS SUMMARY | 2024-07-11 08:18 | XMS_ITS | Encounter Summary ---
Author Organization [facility] Address [address] [place] [address] Care Team Providers Care Licensed Weigher Name Role Phone No Primary/Referring, Phy Primary Care Provider Unavailable Encounter Details Date Type Department Care Team (Late st Contact Info) Description 11/10/2014 Correspondence None No Primary/Referring, Phy REFERRAL AND AUTH Social History Tobacco Use [...] 06/01/2025 9:00 AM CDT Appointment Neurology at [facility] [address] [facility] [place] [place] [address] Fabio De La Torre MD 295 [place] [address] documented as of this encounter Visit Diagnoses Not on filedocumented in this encounter Care Teams Licensed Weigher Relationship Specialty Start Date End Date No Primary/Referring, Phy PCP - General 05/03/21 documented as of this encounter
--- OUTSIDE RECORDS SUMMARY | 2024-07-11 08:18 | XMS_ITS | Encounter Summary ---
Author Organization [facility] Address [address] [place] [address] Care Team Providers Care Direct Service Worker Name Role Phone No Primary/Referring, Phy Primary Care Provider Unavailable Encounter Details Date Type Department Care Team (Late st Contact Info) Description 03/10/2015 Correspondence [facility] Occupational and Environmental Medicine [address] [place] [address] [facility] MED NOTES Social History Tobacco Use Types Packs/Day Years [...] 9:00 AM CDT Appointment Neurology at [facility] [address] [facility] [place] [address] Fabio De La Torre MD [address] [place] [address] documented as of this encounter Visit Diagnoses Not on filedocumented in this encounter Care Teams Direct Service Worker Relationship Specialty Start Date End Date No Primary/Referring, Phy PCP - General 05/03/21 documented as of this encounter
--- OUTSIDE RECORDS SUMMARY | 2024-07-11 08:18 | XMS_ITS | Encounter Summary ---
Author Organization [facility] Address [address] [place] [address] [place] [address] Care Team Providers Care Printed Circuit Board Assembler Name Role Phone No Primary/Referring, Phy Primary Care Provider Unavailable Encounter Details Date Type Department Care Team (Late st Contact Info) Description 11/17/2014 Correspondence [facility] Occupational and Environmental Medicine [address] [place] [address] Neeru Velasco MD [address] [facility] [place] [address] MEDICAL EXAMINERS REPORT Social History Tobacco Use Types Packs/Day Years Used Date Smoking Tobacco: Never Assessed Sex and Gender Information Value Date Recorded Sex Assigned at Not on file Gender Identity Not on file Sexual Orientation Not on file documented as of this encounter Plan of Treatment Upcoming Encounters Date Type Department Care Team (Late st Contact Info) Description 06/01/2025 9:00 AM CDT Appointment Neurology at [facility] [address] [facility] [place] [address] Fabio De La Torre MD [address] [place] [address] documented as of this encounter Visit Diagnoses Not on filedocumented in this encounter Care Teams Printed Circuit Board Assembler Relationship Specialty Start Date End Date No Primary/Referring, Phy PCP - General 05/03/21 documented as of this encounter
--- OUTSIDE RECORDS SUMMARY | 2024-07-11 08:18 | XMS_ITS | Encounter Summary ---
Author Organization [facility] Address [address] [place] [address] Care Team Providers Care Drawing Instructor Name Role Phone No Primary/Referring, Phy Primary Care Provider Unavailable Encounter Details Date Type Department Care Team (Latest Contact Info) Description 02/09/2014 Consent for Procedure/Treatm ent [facility] Occupational and Environmental Medicine [address] [place] [address] DRUG SCREEN BREATH ALCOHOL TEST RELEASE Social History Tobacco Use Types Packs/Day Years Used Date Smoking Tobacco: Never Assessed Sex and Gender Information Value Date Recorded Sex Assigned at Not on file Gender Identity Not on file Sexual Orientation Not on file documented as of this encounter Plan of Treatment Upcoming Encounters Date Type Department Care Team (Late st Contact Info) Description 06/01/2025 9:00 AM CDT Appointment Neurology at [facility] [address] [facility] [place] [address] Fabio De La Torre MD 295 [place] [address] documented as of this encounter Visit Diagnoses Not on filedocumented in this encounter Care Teams Drawing Instructor Relationship Specialty Start Date End Date No Primary/Referring, Phy PCP - General 05/03/21 documented as of this encounter
--- NOTE | 2024-07-11 08:29 | ED.GENADULT ---
HPI - General Adult General Date Seen: 07/11/24 Chief complaint: Skin/Abscess/Foreign Body Stated complaint: Right hand infection/swollen Time Seen by Provider: 07/11/24 07:59 Source: patient Mode of arrival: ambulatory Limitations: no limitations History of Present Illness HPI narrative: Patient is a 69-year-old male presenting for right hand swelling. He states 6 days ago he started noticing some tightness to the dorsal aspect of his right hand. Started noticing quite a bit swelling 3 days ago and that time was started on Bactrim by his primary care provider. He has not noticed any changes in the swelling since then so was told to come back in for re-evaluation. Does states he has pain to the wrist at about the styloid process region. Has pain with movement and has tenderness to palpation there. Has not had any fevers, chills, weakness, numbness. Denies any systemic symptoms at this time. Has not had any previous surgeries to this hand. Denies symptoms like this ever happening before. The area redness was marked previously by his provider and the redness has not moved since then. There is a little abrasion near his middle knuckle that they think was the source of the cellulitis. No other concerns noted. Does not noticed any swelling or pain to the palmar aspect of the hand. Related Data Home Medications ?Medication ?Instructions ?Recorded ?Confirmed Eye Promise 1 tab PO 04/06/24 07/09/24 levetiracetam 250 mg tablet 750 mg PO BID 04/06/24 07/09/24 loratadine 10 mg tablet (Claritin) 10 mg PO QDAY 04/06/24 07/09/24 losartan 25 mg tablet 50 mg PO QDAY 04/06/24 07/09/24 metoprolol tartrate 25 mg tablet 50 mg PO BID 04/06/24 07/09/24 multivitamin 1 tab PO QAM 04/06/24 07/09/24 B-complex with vitamin C 1 tab PO QDAY 07/02/24 07/09/24 furosemide 40 mg tablet (Lasix) 20 mg PO QDAY 07/02/24 07/09/24 rivaroxaban 2.5 mg tablet (Xarelto) 2.5 mg PO QHS 07/02/24 07/09/24 Previous Rx's ?Medication ?Instructions ?Recorded oxycodone 5 mg tablet 5 mg PO Q6H PRN pain 7 days #28 07/09/24 tabs sulfamethoxazole 800 1 tab PO BID 10 days #20 tabs 07/09/24 mg-trimethoprim 160 mg tablet (Bactrim DS) doxycycline hyclate 100 mg capsule 100 mg PO BID 7 days #14 caps 07/11/24 sulfamethoxazole 800 1 tab PO Q12H 7 days #14 tabs 07/11/24 mg-trimethoprim 160 mg tablet (Bactrim DS) Allergies Allergy/AdvReac Type Severity Reaction Status Date / Time lisinopril AdvReac Mild Cough Verified 07/09/24 14:29 Review of Systems Narrative: Pertinent systems reviewed and were negative unless stated in HPI PFSH PFSH Surgical History History of brain surgery (1952) ?Z98.890 - Other specified postprocedural states (ICD-10) History of phacoemulsification of cataract of left eye with intraocular lens implantation (07/30/18) ?Z98.42 - Cataract extraction status, left eye (ICD-10) ?Z96.1 - Presence of intraocular lens (ICD-10) Family History Mother Stroke Social History Narrative: No alcohol. No illicit drug use. The patient is smoking about 6 cigarettes per day. Smoking Status: Current every day smoker Do you use any of these nicotine containing products: None Second hand tobacco smoke exposure: No How often do you have a drink containing alcohol: never AUDIT-C Alcohol total score: 0 Non-prescribed substance use: denies use service: No Exam Narrative: Exam Narrative: Const: Well-nourished, Well-developed, in mild distress Eyes: PERRL, no conjunctival injection, and symmetrical lids HENT: Atraumatic external nose and ears. Moist mucous membranes. MSK: Swelling noted dorsal aspect of the right wrist with decreased range of motion secondary to pain. Can move the wrist about 45? flexion and extension without pain though. Pain and tenderness are noted at around the styloid process to the wrist. Skin: Erythema and warmth noted to the dorsal aspect of the right wrist Toradol about fiber 6 cm up the forearm. There is a rell does show lower previous erythema was and I see no changes at this time. Neuro: Normal Muscle tone, No focal neurological deficits. Psych: Awake, Alert, & Oriented x3. Appropriate mood and affect. Const: Vital Signs, click to edit/add: Vital Signs - 24 hr 07/11/24 07:27 Temperature 98.8 F Pulse Rate [Pulse Oximeter] 84 Respiratory Rate 20 Blood Pressure [Le ft Upper Arm] 141/102 H Pulse Oximetry 96 Oxygen Delivery Me thod Room Air Course Vital Signs Vital signs: Initial Vital Signs Temperature 98.8 F 07/11/24 07:27 Temperature Source Temporal Artery Scan 07/11/24 07:27 Pulse Rate 84 07/11/24 07:27 Pulse Rhythm Regular 07/11/24 07:27 Respiratory Rate 20 07/11/24 07:27 Blood Pressure 141/102 H 07/11/24 07:27 Blood Pressure Mean 115 H 07/11/24 07:27 Blood Pressure Position Supine 07/11/24 07:27 Pulse Oximetry 96 07/11/24 07:27 Oxygen Delivery Method Room Air 07/11/24 07:27 Vital Signs Temperature 98.8 F 07/11/24 07:27 Pulse Rate 84 07/11/24 07:27 Respiratory Rate 20 07/11/24 07:27 Blood Pressure 141/102 H 07/11/24 07:27 Pulse Oximetry 96 07/11/24 07:27 Oxygen Delivery Method Room Air 07/11/24 07:27 Temperature 98.8 F 07/11/24 07:27 Pulse Rate 84 07/11/24 07:27 Respiratory Rate 20 07/11/24 07:27 Blood Pressure 141/102 H 07/11/24 07:27 Pulse Oximetry 96 07/11/24 07:27 Oxygen Delivery Method Room Air 07/11/24 07:27 Medications Administered Medications: Discontinued Medications Generic Name Dose Route Start Last Admin Trade Name Freq PRN Reason Stop Dose Admin Sodium Chloride 1,000 mls @ 1,000 mls/hr 07/11/24 09:00 07/11/24 10:45 0.9 % Sodium Chloride 1000 Ml IV 07/11/24 09:59 Infused .Q1H AYANNA Infusion Ceftriaxone Sodium 1 gm/ 100 mls @ 200 mls/hr 07/11/24 09:27 07/11/24 10:35 Sodium Chloride IVPB 07/11/24 09:28 Infused ONCE ONE Infusion Medical Decision Making MDM Narrative Medical decision making narrative: Patient is a 69-year-old male presenting for right wrist hand swelling and erythema. There appears to be some type of infection. Differential this time glued cellulitis, septic arthritis, gout. He has no history of gout. Will do a CBC, BMP, CRP, ESR. Will also do x-rays of the hand and wrist. Lab work returned showing a normal white blood cell count and a normal ESR. His CRP is elevated consistent with the expectation of an infection. His sodium was 125. Previous labs show his sodium is review shows his sodium is usually around 129. He is not having any symptoms of this sodium at 125 and do not believe it requires admission. I will give him a L of normal saline though I did speak to the on-call provider for his primary care who states he will speak to the patient's PCP to have labs recheck. I spoke to Orthopedics and Dr. Pierce evaluated the wrist. At this time he thinks is most likely an overlying cellulitis and does not think it is a septic joint. Does recommend 7 days of IV antibiotics and will start him on Rocephin. He will get the 1st dose here in the emergency department and will get the rest done outpatient. He then recommends 7 days of Bactrim and doxycycline afterwards. The patient will follow-up in his office in 1 week. X-rays were reviewed and showed no concerning abnormalities other than some arthritis. Lab Data Labs: Lab Results 07/11/24 07/11/24 Range/Units 08:28 10:44 WBC 9.43 (4.50-11.00) K/uL RBC 4.54 (4.30-5.90) m/uL Hgb 12.8 L (13.5-17.5) gm/dL Hct 38.5 (37.0-53.0) % MCV 85 (80-100) fL MCH 28 (26-34) pg MCHC 33 (32-36) gm/dL RDW Coeff of Ani 14.9 (11.5-15.5) % Plt Count 191 (140-440) K/uL Neut % (Auto) 66.2 (42.0-72.0) % Lymph % (Auto) 13.8 L (20-44) % Douglas % (Auto) 19.1 H (0.0-11.0) % Eos % (Auto) 0.6 (0.0-7.0) % Baso % (Auto) 0.1 (0.0-3.0) % Neut # (Auto) 6.24 (1.7-7.0) K/uL Lymph # (Auto) 1.30 (0.90-2.90) K/uL Douglas # (Auto) 1.80 H (0.00-0.90) K/UL Eos # (Auto) 0.06 (0.00-0.50) K/uL Baso # (Auto) 0.01 (0.00-0.30) K/uL Abs Immat Gran (auto) 0.02 (0.00-0.30) K/uL Imm/Tot Granulo (auto) 0.2 % ESR 10 (2-15) mm/hr Sodium 125 L 128 L (135-149) mmol/L Potassium 3.6 3.7 (3.6-5.1) mmol/L Chloride 90 L 92 L (96-114) mmol/L Carbon Dioxide 26 25 (20-32) mmol/L Anion Gap 9 11 (7-15) mEq/L BUN 14 12 (7-30) mg/dL Creatinine 0.7 0.7 (0.5-1.5) mg/dL Estimated Creat Clear 69.96 69.96 Estimated GFR 99 99 ml/min Glucose 108 104 (60-115) mg/dL Calcium 8.6 8.2 L (8.4-10.6) mg/dL C-Reactive Protein 13.1 H (0.5-1.0) mg/dL Imaging Data X-ray right wrist: Attestation: I have reviewed the pertinent imaging results. Radiologist's impression: 1. No acute fracture, dislocation or destructive process. 2. Mild arthritic change. 3. Soft tissue swelling. No gas within soft tissues. No radiopaque foreign body. 4. There is no evidence of osteomyelitis by plain film Dictated by Gerry Reyes MD @ 07/11/2024 9:03:46 AM X-ray right hand: Attestation: I have reviewed the pertinent imaging results. Radiologist's impression: 1. No acute fracture, dislocation or destructive process. 2. Mild arthritic change. 3. Soft tissue swelling. No gas within soft tissues. No radiopaque foreign body. 4. There is no evidence of osteomyelitis by plain film Dictated by Gerry Reyes MD @ 07/11/2024 9:01:13 AM Discharge Plan Discharge Clinical Impression: Cellulitis of hand, right Patient Disposition: Home, Self-Care Condition: Stable Instructions: Cellulitis (ED) Additional Instructions: You will return daily for the next 6 days for 1 mg of IV ceftriaxone. Tomorrow 08/12/2024 come to the front desk team member and they will send you to the [facility] floor to have your antibiotic done. After that your antibiotics will be done through the infusion center. Asked them tomorrow were you go for that. After a total of 7 days, including today, he would then start on 7 days of Bactrim and doxycycline. These were provided. Follow-up with [facility]. Call them at . Dr. Pierce specifically wants to follow-up with you. Schedule appointment for sometime within the next week. For your low sodium I recommend following up with her primary care provider for lab recheck a on Saturday. I did inform the on-call provider covering for her so they are aware. Prescriptions: New sulfamethoxazole-trimethoprim [Bactrim DS] 800-160 mg tablet 1 tab PO Q12H 7 Days Qty: 14 0RF Rx Instructions: Start the medication on 07/18/2024 and take for 7 days. doxycycline hyclate 100 mg capsule 100 mg PO BID 7 Days Qty: 14 0RF Rx Instructions: Start the medication on 07/18/2024 and take for 7 days. No Action multivitamin Tablet 1 tab PO QAM loratadine [Claritin] 10 mg tablet 10 mg PO QDAY [facility] 1 tab PO levetiracetam 250 mg tablet 750 mg PO BID losartan 25 mg tablet 50 mg PO QDAY metoprolol tartrate 25 mg tablet 50 mg PO BID Xarelto 2.5 mg tablet 2.5 mg PO QHS furosemide [Lasix] 40 mg tablet 20 mg PO QDAY B-complex with vitamin C Tablet 1 tab PO QDAY sulfamethoxazole-trimethoprim [Bactrim DS] 800-160 mg tablet 1 tab PO BID 10 Days Qty: 20 0RF oxycodone 5 mg tablet 5 mg PO Q6H PRN (Reason: pain) 7 Days Qty: 28 0RF Follow Up/Referrals: Dorothy Pelayo APRN, INVESTMENT PROFESSIONAL [Primary Care Provider] - Stand Alone Forms: [employer] Info Instructions
[2024-07-11 08:34] LABS: Basophils Absolute Auto 0.01 K/uL (0.00-0.30); Basophils Percent Auto 0.1 % (0.0-3.0); Eosinophils Absolute Auto 0.06 K/uL (0.00-0.50); Eosinophils Percent Auto 0.6 % (0.0-7.0); Hematocrit 38.5 % (37.0-53.0); Hemoglobin* 12.8 gm/dL (13.5-17.5); Immature Granulocytes Abs Auto 0.02 K/uL (0.00-0.30); Immature Granulocytes Pct Auto 0.2 %; Lymphocytes Percent Auto 13.8 % (20-44); Mean Corpuscular HGB Conc 33 gm/dL (32-36); Mean Corpuscular Hemoglobin 28 pg (26-34); Mean Corpuscular Volume 85 fL (80-100); Monocytes Percent Auto 19.1 % (0.0-11.0); Neutrophils Absolute Auto 6.24 K/uL (1.7-7.0); Neutrophils Percent Auto 66.2 % (42.0-72.0); Platelet Count* 191 K/uL (140-440); RDW Coefficient of Variation % 14.9 % (11.5-15.5); Red Blood Count 4.54 m/uL (4.30-5.90); White Blood Count* 9.43 K/uL (4.50-11.00)
[2024-07-11 08:47] LABS: Slide Review Reflex No
[2024-07-11 08:50] LABS: Chloride* 90 mmol/L (96-114)
[2024-07-11 08:51] LABS: Potassium* 3.6 mmol/L (3.6-5.1); Sodium* 125 mmol/L (135-149)
[2024-07-11 08:53] LABS: Creatinine* 0.7 mg/dL (0.5-1.5); Est. Creatinine Clearance* 69.96; Estimated Glomerular Filt Rate 99 ml/min
[2024-07-11 08:54] LABS: Anion Gap 9 mEq/L (7-15); Blood Urea Nitrogen* 14 mg/dL (7-30); Calcium* 8.6 mg/dL (8.4-10.6); Carbon Dioxide* 26 mmol/L (20-32); Glucose* 108 mg/dL (60-115)
[2024-07-11] MEDS: 0.9 % SODIUM CHLORIDE 1000 ml 1,000 ML IV (09:05)
--- NOTE | 2024-07-11 09:07 | P.ORCN_ITS ---
History of Present Illness HPI Date Seen: 07/11/24 Chief complaint: Right hand infection/swollen Narrative: Umair is a pleasant 69-year-old male. Right-hand dominant. Presents with a complaint of right wrist swelling and pain. Emergency room physician had some concern for possible septic wrist arthritis. Orthopedics was subsequently consulted. Patient reports 6 days ago noticing some tightness in the dorsal aspect of his right hand/wrist. Noted some swelling approximately 3 days ago with some mild erythema. Present to [facility] location 07/08/2024. There, there was some concern for cellulitis. He was given oral Bactrim. Encouraged to monitor things. If it persisted then to consider going to the ED. Thus his presentation today to [place] ED. He reports no significant change since 07/08/2024. He reports no systemic fevers, chills, rigors, or other systemic symptoms. He reports no numbness or tingling. PFSH PFSH Surgical History History of brain surgery (1952) ?Z98.890 - Other specified postprocedural states (ICD-10) History of phacoemulsification of cataract of left eye with intraocular lens implantation (07/30/18) ?Z98.42 - Cataract extraction status, left eye (ICD-10) ?Z96.1 - Presence of intraocular lens (ICD-10) Family History Mother Stroke Social History Narrative: No alcohol. No illicit drug use. The patient is smoking about 6 cigarettes per day. Smoking Status: Current every day smoker Do you use any of these nicotine containing products: None Second hand tobacco smoke exposure: No How often do you have a drink containing alcohol: never AUDIT-C Alcohol total score: 0 Non-prescribed substance use: denies use service: No Meds Home Medications and Allergies Home Medications ?Medication ?Instructions ?Recorded ?Confirmed ?Type [facility] 1 tab PO 04/06/24 07/09/24 History levetiracetam 250 mg tablet 750 mg PO BID 04/06/24 07/09/24 History loratadine 10 mg tablet (Claritin) 10 mg PO QDAY 04/06/24 07/09/24 History losartan 25 mg tablet 50 mg PO QDAY 04/06/24 07/09/24 History metoprolol tartrate 25 mg tablet 50 mg PO BID 04/06/24 07/09/24 History multivitamin 1 tab PO QAM 04/06/24 07/09/24 History B-complex with vitamin C 1 tab PO QDAY 07/02/24 07/09/24 History furosemide 40 mg tablet (Lasix) 20 mg PO QDAY 07/02/24 07/09/24 History rivaroxaban 2.5 mg tablet (Xarelto) 2.5 mg PO QHS 07/02/24 07/09/24 History Allergies Allergy/AdvReac Type Severity Reaction Status Date / Time lisinopril AdvReac Mild Cough Verified 07/09/24 14:29 Ortho Exam Narrative Exam Narrative: Patient is alert and oriented x3. No acute distress. Lying supine in the ED bed. His is present as well in augment some of the history. Right wrist shows 2+ edema to the distal 1/3 forearm down to the fingers. Fingers and wrist are somewhat stiff from not moving for multiple days as well as the combination of swelling. No appreciable effusions within the wrist joint itself. Passive wrist range of motion shows extension and flexion of 15 & 30? pain free, respectively. Even radial and ulnar deviation of 5 and 10? produces no pain. Somewhat limited due to the swelling. Neurologic intact in the radial, ulnar, and median nerve distribution to sensory light touch and motor function. Digit tips pink, warm, brisk cap refill. Nontender throughout the flexor tendons from the finger down through the palm and forearm. He is tender over the radial styloid/scaphoid anatomic snuffbox region. Also tender over the dorsal wrist centrally, but this is consistent with his pain during passive or active wrist flexion as it stretching the dorsal tissues of the wrist. Const Vital Signs, click to edit/add: Vital Signs - 24 hr 07/11/24 07:27 Temperature 98.8 F Pulse Rate [Pulse Oximeter] 84 Respiratory Rate 20 Blood Pressure [Left Upper Arm] 141/102 H Pulse Oximetry 96 Oxygen Delivery Method Room Air Results Labs Labs: Laboratory Results - last 48 hr 07/11/24 08:28 WBC 9.43 RBC 4.54 Hgb 12.8 L Hct 38.5 MCV 85 MCH 28 MCHC 33 RDW Coeff of Ani 14.9 Plt Count 191 Neut % (Auto) 66.2 Lymph % (Auto) 13.8 L Clinch % (Auto) 19.1 H Eos % (Auto) 0.6 Baso % (Auto) 0.1 Neut # (Auto) 6.24 Lymph # (Auto) 1.30 Clinch # (Auto) 1.80 H Eos # (Auto) 0.06 Baso # (Auto) 0.01 Abs Immat Gran (auto) 0.02 Imm/Tot Granulo (auto) 0.2 Sodium 125 L Potassium 3.6 Chloride 90 L Carbon Dioxide 26 Anion Gap 9 BUN 14 Creatinine 0.7 Estimated Creat Clear 69.96 Estimated GFR 99 Glucose 108 Calcium 8.6 Diagnostic results Additional Comments: Three views of the right wrist and three views the right hand from [facility] dated 07/11/2024 were ordered by a different provider and reviewed by me. This demonstrates some osteoarthritic change at the triscaphe articulation. While the joint spaces decently maintained, there is cystic change to the dis kesha scaphoid (more ulnar than radial), but also osteophytosis at the distal scaphoid. Beyond that, generalized soft tissue swelling is noted. Mild pronator quadratus fat pad sign. No acute fractures or avulsions. No signs of AVN. Assessment and Plan Assessment and plan (1) Cellulitis of right wrist: Status: Acute (2) Primary osteoarthritis, right wrist: Status: Acute Plan I had a good discussion today with the patient. His history is very helpful. The fact that he is not showed significant worsening over the last 3 days is encouraging. His swelling and erythema are unchanged, per his report. As I ob serve his wrist today, there is significant swelling and only mild erythema. The fact that I can passively move his wrist whether that is in flexion/extension or radial/ulnar deviation, this is relatively encouraging. My suspicion of a septic arthritis of the right wrist is low. Instead, I do think he is battling cellulitis of the right wrist (dorsal especially). He does have some osteoarthritic change of the STT joint right wrist. This may have gotten flared from all the generalized inflammation in the area. Ultimately, I would favor nonoperative management. This would include IV ant ibiotics x7 days followed by oral antibiotics for another 7 days thereafter. While he is on Bactrim, he can resume that once the IV antibiotics are done, but perhaps could benefit from a dual antibiotic therapy with doxycycline. He would also benefit from a right wrist brace to allow to rest. He cannot take oral NSAIDs as he is currently on a blood thinner for AFib. However, I have encouraged him to ice it regularly. He states understanding. Finally, would like to see him back in my clinic in approximately 1 week. Repeat clinical check. If things worsen, then obviously notify me/the ED sooner. Of note, labs are still pending. White count is normal. But ESR and CRP are pending. I would expect these to be elevated given the suspected cellulitis. I have communicated directly with Dr. Bryan (ED physician) and coordinated the care accordingly.
[2024-07-11 09:11] LABS: C Reactive Protein* 13.1 mg/dL (0.5-1.0); Erythrocyte SedimentationRate* 10 mm/hr (2-15)
[2024-07-11] MEDS: cefTRIAXone 1 GM in 0.9 % SODIUM CHLORIDE Mini-bag 100 ML IVPB (09:46)
[2024-07-11 11:03] LABS: Chloride* 92 mmol/L (96-114); Potassium* 3.7 mmol/L (3.6-5.1); Sodium* 128 mmol/L (135-149)
[2024-07-11 11:05] LABS: Creatinine* 0.7 mg/dL (0.5-1.5); Est. Creatinine Clearance* 69.96; Estimated Glomerular Filt Rate 99 ml/min
[2024-07-11 11:06] LABS: Anion Gap 11 mEq/L (7-15); Blood Urea Nitrogen* 12 mg/dL (7-30); Carbon Dioxide* 25 mmol/L (20-32); Glucose* 104 mg/dL (60-115)
[2024-07-11 11:07] LABS: Calcium* 8.2 mg/dL (8.4-10.6)
[2024-07-11 11:10] VITALS: BP 155/101; RESP 18
== END 2024-07-11 11:28 | disposition home or self-care (01) ==
PROVIDERS: Emergency Provider Student in an Organized Health Care Education/Training Program; PCP Nurse Practitioner Family
DX: L03.113 Cellulitis of right upper limb (principal)
CPT/HCPCS: 36415; 73110; 73130; 80048; 85025; 85651; 86140; 96365; 99283; 99284; J0696; J7030

== ENCOUNTER 2024-07-17 08:30 | Outpatient (RCR) | payer MEDICARE, BC, SELFPAY ==
[2024-07-12] MEDS: cefTRIAXone 1 GM in 0.9 % SODIUM CHLORIDE Mini-bag 100 ML IVPB (11:02)
[2024-07-13 11:42] VITALS: BP 128/81; PULSE 68; RESP 16; TEMP 36.4; O2SAT 97
[2024-07-13] MEDS: cefTRIAXone 1 GM in 0.9 % SODIUM CHLORIDE Mini-bag 100 ML IVPB (12:05)
[2024-07-13 12:09] LABS: Chloride* 93 mmol/L (96-114)
[2024-07-13 12:10] LABS: Sodium* 128 mmol/L (135-149)
[2024-07-13 12:12] LABS: Creatinine* 0.7 mg/dL (0.5-1.5); Estimated Glomerular Filt Rate 99 ml/min
[2024-07-13 12:13] LABS: Anion Gap 8 mEq/L (7-15); Blood Urea Nitrogen* 16 mg/dL (7-30); Calcium* 8.7 mg/dL (8.4-10.6); Carbon Dioxide* 27 mmol/L (20-32); Glucose* 105 mg/dL (60-115)
[2024-07-14 09:53] VITALS: BP 149/85; PULSE 73; RESP 16; TEMP 36.1; O2SAT 97
[2024-07-14] MEDS: cefTRIAXone 1 GM in 0.9 % SODIUM CHLORIDE Mini-bag 100 ML IVPB (10:11)
[2024-07-15 08:28] VITALS: BP 153/79; PULSE 71; RESP 16; TEMP 36.1; O2SAT 97
[2024-07-15] MEDS: SODIUM CHLORIDE 0.9 % (FLUSH) 10 ML SYRINGE IVF (08:40)
[2024-07-15] MEDS: cefTRIAXone 1 GM in 0.9 % SODIUM CHLORIDE Mini-bag 100 ML IVPB (08:40)
[2024-07-16 08:21] VITALS: BP 132/77; PULSE 71; RESP 16; TEMP 35.6; O2SAT 97
[2024-07-16] MEDS: cefTRIAXone 1 GM in 0.9 % SODIUM CHLORIDE Mini-bag 100 ML IVPB (08:36)
[2024-07-16] MEDS: SODIUM CHLORIDE 0.9 % (FLUSH) 10 ML SYRINGE IVF (08:36)
[2024-07-17] MEDS: cefTRIAXone 1 GM in 0.9 % SODIUM CHLORIDE Mini-bag 100 ML IVPB (08:43)
== END 2025-01-08 23:59 | disposition home or self-care (01) ==
LOC: CCIC 08:30
PROVIDERS: PCP Nurse Practitioner Family; Referring Provider Nurse Practitioner Family; Visit Provider Student in an Organized Health Care Education/Training Program
DX: L03.113 Cellulitis of right upper limb (principal)
CPT/HCPCS: 36415; 80048; 96365; G0463; J0696

== ENCOUNTER 2024-07-20 11:31 | Outpatient (CLI) | payer MEDICARE, BC, SELFPAY ==
--- OUTSIDE RECORDS SUMMARY | 2024-07-20 11:36 | XMS_ITS | Encounter Summary ---
Author Organization [facility] Address [address] [place] [id number] Care Team Providers Care Business Support Specialist Name Role Phone Margie Dee M.D. Primary Care Provider [phone] Encounter Details Date Type Department Care Team (Late st Contact Info) Description 05/18/2008 Historical Ophthalmology [facility] O[facility] Mohini Corona M.D. [address] [place] [id number] Social History Tobacco Use Types Packs/Day Years Used Date Smoking Tobacco: Never Assessed Sex and Gender Information Value Date Recorded Sex Assigned at Male 10/06/2022 8:25 PM SILK CONDITIONER Legal Sex Male 11:39 PM SILK CONDITIONER Gender Identity Male 10/06/2022 8:25 PM SILK CONDITIONER Sexual Orientation Straight 10/06/2022 8: 25 PM SILK CONDITIONER documented as of this encounter Progress Notes * Mohini Corona M.D. - 05/18/2008 12:06 PM CDT Eye Postoperative MULTI-VISIT DOCUMENT This document contains multiple patient visits and is available for review in Document Viewer. CDM Reports - EYEPO Id: [id number] Status: Fnl documented in this encounter Plan of Treatment Not on file documented as of this encounter Visit Diagnoses Not on filedocumented in this encounter Additional Health Concerns Infection Onset Date Last Indicated Resolved Time COVID19 Pending 03/08/2024 03/08/2024 03/08/2024 7 :35 AM CDT documented as of this encounter Care Teams Business Support Specialist Relationship Specialty Start Date End Date Margie Dee M.D. [address] [place] [phone] PCP - General Family Medicine 03/02/24 documented as of this encounter
--- OUTSIDE RECORDS SUMMARY | 2024-07-20 11:36 | XMS_ITS | Encounter Summary ---
Author Organization [facility] Address [address] [place] [address] Care Team Providers Care Bridge Painter Helper Name Role Phone No Primary/Referring, Phy Primary Care Provider Unavailable Encounter Details Date Type Department Care Team (Late st Contact Info) Description 02/09/2014 Correspondence [facility] Occupational and Environmental Medicine [address] [place] [id number] REFERRAL AND AUTH Social History Tobacco Use [...] 9:00 AM CDT Appointment Neurology at [facility] [address] [facility] [place] [address] Fabio De La Torre MD [address] [place] [address] documented as of this encounter Visit Diagnoses Not on filedocumented in this encounter Care Teams Bridge Painter Helper Relationship Specialty Start Date End Date No Primary/Referring, Phy PCP - General 05/03/21 documented as of this encounter
--- OUTSIDE RECORDS SUMMARY | 2024-07-20 11:36 | XMS_ITS | Encounter Summary ---
Author Organization [facility] Address [address] [place] [address] Care Team Providers Care Non Cdl Driver Name Role Phone Margie Dee M.D. Primary Care Provider [phone] Encounter Details Date Type Department Care Team (Late st Contact Info) Description 03/12/2008 Historical Ophthalmology [facility] O[facility] Mohini Corona M.D. [address] [place] [phone] Social History Tobacco Use Types Packs/Day Years Used Date Smoking Tobacco: Never Assessed Sex and Gender Information Value Date Recorded Sex Assigned at Male 10/06/2022 8:25 PM TYPESETTER PERFORATOR OPERATOR Legal Sex Male 11:39 PM TYPESETTER PERFORATOR OPERATOR Gender Identity Male 10/06/2022 8:25 PM TYPESETTER PERFORATOR OPERATOR Sexual Orientation Straight 10/06/2022 8: 25 PM TYPESETTER PERFORATOR OPERATOR documented as of this encounter Progress Notes [...] the procedure with the patient (or legal advertising sales representative and others present during the [...] cataract OU CDM Reports - EYEGEN Id: [id number] Status: Fnl documented in this encounter Plan of Treatment Not on file documented as of this encounter Visit Diagnoses Not on filedocumented in this encounter Additional Health Concerns Infection Onset Date Last Indicated Resolved Time COVID19 Pending 03/08/2024 03/08/2024 03/08/2024 7 :35 AM CDT documented as of this encounter Care Teams Non Cdl Driver Relationship Specialty Start Date End Date Margie Dee M.D. [id number] [place] [phone] PCP - General Family Medicine 03/02/24 documented as of this encounter
--- OUTSIDE RECORDS SUMMARY | 2024-07-20 11:36 | XMS_ITS | Encounter Summary ---
Author Organization [facility] Address [address] [place] [address] Care Team Providers Care Crop Consultant Name Role Phone No Primary/Referring, Phy Primary Care Provider Unavailable Encounter Details Date Type Department Care Team (Latest Contact Info) Description 02/09/2014 Consent for Procedure/Treatm ent [facility] Occupational and Environmental Medicine [address] [place] [id number] DRUG SCREEN BREATH ALCOHOL TEST RELEASE Social [...] AM CDT Appointment Neurology at [facility] [address] [place] [address] Fabio De La Torre MD [address] [place] [address] documented as of this encounter Visit Diagnoses Not on filedocumented in this encounter Care Teams Crop Consultant Relationship Specialty Start Date End Date No Primary/Referring, Phy PCP - General 05/03/21 documented as of this encounter
--- OUTSIDE RECORDS SUMMARY | 2024-07-20 11:36 | XMS_ITS | Clinical Summary ---
Author Organization [facility] Address [address] [place] [address] Care Team Providers Care Screw Supervisor Name Role Phone Margie Dee M.D. Primary Care Provider [phone] Source Comments Patient records contain information from all sites at [facility]. For routine questions regarding patient records, call [phone] during business hours, M-F 8:00 AM - 5:00 PM Central Time. Record requests for emergency care only can be directed to [phone] at any time.[facility] Allergies Active Allergy Reactions Criticality Noted Date Comments Lisinopril Cough Low 11/27/2019 Medications * This document contains information received from the source organization and may not represent a complete record from that organization. levETIRAcetam (KEPPRA) 750 mg tablet Take 1 tablet by mouth 2 (two) times a day. 1 Active multivitamin (THERAGRAN) tablet Take 1 tablet by mouth daily. Active vitamins A,C,E-zinc-lars er (PRESERVISION AREDS) 7,160 Units-113 mg-100 Units per tablet Take 1 tablet by mouth 2 (two) times a day. Active psyllium (METAMUCIL) powder Take 2 packets by mouth daily. 283 g 12 3 Active Xarelto 20 mg tablet TAKE 1 TABLET EVERY DAY WITH DINNER (APPOINTMENT IS NEEDED) 90 tablet 3 4 Active Additional Information Patient taking differently: 20 mg oral Daily with evening meal, Reported on 03/08/2024 triamcinolone (NASACORT) 55 mcg/actuation nasal sprayIndication s:Rhinitis Acute ADMINISTER 1 SPRAY INTO EACH NOSTRIL DAILY 16.9 mL 1 4 Active polyethylene glycol-electrol ytes (GoLYTELY) 236-22.74-6.74 -5.86 gram solutionIndicat ions:Screening Cancer Colon Drink 1st portion of prep at 6 PM the evening before. 2nd portion must be started 3 hours before and finished 2 hours prior to report time 4000 mL 4 Active nicotine polacrilex (NICORETTE) 2 mg lozenge Dissolve 1 lozenge in mouth (do not bite or chew) every 1 to 2 hours as needed or as directed for nicotine withdrawal symptoms 216 lozenge 3 4 Active metoprolol tartrate (LOPRESSOR) 50 mg tablet Take 1 tablet (50 mg total) by mouth 2 (two) times a day. 180 tablet 3 4 Active benzonatate (TESSALON PERLES) 100 mg capsule Take 1 capsule (100 mg total) by mouth 3 (three) times a day as needed for cough. 15 capsule 4 Active albuterol 90 mcg/actuation inhaler Inhale 2 puffs every 4 (four) hours as needed for shortness of breath. 18 g 4 Active losartan (Cozaar) 50 mg tablet TAKE 1 TABLET (50 MG TOTAL) BY MOUTH DAILY. PATIENT NEEDS LABS FOR FURTHER REFILLS. 90 tablet 4 Active Active Problems Problem Noted Date Diagnosed Date [...] (09/21/2019): Added automatically from request for surgery [id number] Encounters Date Type Department Care Team Description 06/17/2024 Refill Department of Family Medicine, [facility], in [address] [address] Margie Dee M.D. Med Refill [...] alcohol) beer once a month [facility] Buttonities Answer Date Recorded In the past 12 months has [employer], gas, oil, or water [employer] threatened to shut off services in your [...] often do you attend chur ch or roman catholic services? More than 4 times per year 10/06/2022 Do you belong to any clubs o r organizations such as congregational groups, unions, fraternal or athletic groups, or [...] Answer Date Recorded PHQ-2 Score 0 10/21/2023 [facility] of Occupat ional Health - Occupational Stress [...] Date Recorded Dental: Regular Dentist No 10/06/19 23 Employment Answer Date Recorded Employment status Retired 11/12/2023 Housing Stability Answer Date Recorded What is your living situation today? I have a [facility] place to live 11/12/2023 Education Answer Date Recorded What is the highest level of school you have completed or the highest degree you have received? 12th grade 10/06/2022 Sex and Gender Information Value Date Recorded Sex Assigned at Male 10/06/2022 8:25 PM HAND FOLDER Legal Sex Male 11:39 PM HAND FOLDER Gender Identity Male 10/06/2022 8:25 PM HAND FOLDER Sexual Orientation Straight 10/06/2022 8: 25 PM HAND FOLDER Last Filed Vital Signs Vital Sign Reading [...] 01/2022, 09/14/2019, Additional history exists COVID-19 Vaccine ( - 2023-2 5 season) 2024 10/11/2022, 01/30/2022, 09/08/2021, Additional history exists Influenza Vaccine (#1) 2024 Visit: Medicare Annual Wellness 11/16/2024 4, 10/11/2022 Fasting Glucose for Diabetes Screening 12/16/2024 12/17/2023, 10/11/2022, 01/25/2022 Office Visit for Blood Press ure Check / Re-check 02/27/2025 02/28/2024 Visit: Chronic Disease, age 18+ 02/27/2025 DTaP,Tdap,and Td Vaccines (2 - Td or Tdap) 11/04/2025 11/04/2015 Depression Screening (Annual PHQ-2) Completed 10/21/2023, 10/21/2023 Fall Risk Screen (Annual) Completed 10/21/2023 Procedures Procedure Name Priority Date/Time Associated Diagnosis Comments HEMOGLOBIN A1C, B Routine 12/17/2023 9:3 4 AM CDT Hyperglycemia BASIC METABOLIC PANEL, S/P Routine 10/11/2022 2:11 PM HAND FOLDER Hypertension Essential Primary from Last 3 Months [...] M.D. LAB BLOOD ADD-ON Final Resu lt [facility] [address] [place] [address], [facility] CNFL [place] [address] * Basic Metabolic Panel (10/11/2022 2:11 PM HAND FOLDER) Potassium, P 3.9 3.6 - 5.2 mmol/L 10/11/2022 2:49 PM HAND FOLDER CNFL Sodium, P 135 135 - 145 mmol/L 10/11/2022 2:49 PM HAND FOLDER CNFL Chloride, P 98 98 - 107 mmol/L 10/11/2022 2:49 PM HAND FOLDER CNFL Bicarbonate, P 29 22 - 29 mmol/L 10/11/2022 2:49 PM HAND FOLDER CNFL Anion Gap, P 8 7 - 15 10/11/2022 2:49 PM HAND FOLDER CNFL BUN (Blood Urea Nitrogen), P 19 8 - 24 mg/dL 10/11/2022 2:49 PM HAND FOLDER CNFL Creatinine 0.96 0.74 - 1.35 mg/dL 10/11/2022 2:49 PM HAND FOLDER CNFL Estimated GFR (eGFR) 86 >=60 mL/min/BSA 10/11/2022 2:49 PM HAND FOLDER CNFL Comment: Estimated GFR calculated using the 2020 CKD_EPI creatinine equation. Calcium, Total, P 9.3 8.8 - 10.2 mg/dL 10/11/2022 2:49 PM HAND FOLDER CNFL Glucose, P 106 70 - 140 mg/dL 10/11/2022 2:49 PM HAND FOLDER CNFL Blood (Blood, Venous) 10/11/2022 2:11 PM HAND FOLDER 10/11/2022 2:17 PM HAND FOLDER us Nadia Coles M.D. LAB BLOOD ADD-ON Final Res ult [facility] [address] [place] [address], [place] CNFL [facility] in [place] [address] [place] [address] from Last 3 Months or Most Recently Relevant to Health Maintenance Insurance * Guarantor: Junior Reeves Account Type Relation to Patient Date of Phone Billing Address Personal/Family Self [address] [place] [address] [place] [address] [facility] [place] [address] MEDICARE Advance Directives For more information, please contact: [phone] * Full Code (Latest Code Status on File) Date Activated Date Inactivated Comments 11/27/2019 9:04 AM 11/27/2019 11:58 AM Question Answer Comments Full Code: Discussed Care Teams Screw Supervisor Relationship Specialty Start Date End Date Margie Dee M.D. [address] [place] [phone] PCP - General Family Medicine 03/02/24
--- OUTSIDE RECORDS SUMMARY | 2024-07-20 11:36 | XMS_ITS | Encounter Summary ---
Author Organization [facility] Address [address] [place] [address] Care Team Providers Care Associate Curator Name Role Phone No Primary/Referring, Phy Primary [...] AM CDT Appointment Neurology at [facility] [address] [place] [address] Fabio De La Torre MD 295 [place], [place] [phone] documented as of this encounter Visit Diagnoses Not on filedocumented in this encounter Care Teams Associate Curator Relationship Specialty Start Date End Date No Primary/Referring, Phy PCP - General 05/03/21 documented as of this encounter
--- OUTSIDE RECORDS SUMMARY | 2024-07-20 11:36 | XMS_ITS ---
Author Organization [facility] Address [address] [place] [address] Care Team Providers Care Technical Assistance Consultant Name Role Phone Unavailable Unavailable Unavailable Surgery Details Not on file Complications Check Surgery Details section. Procedure Estimated Blood Loss Check Surgery Details section. Procedure Findings Check Surgery Details section. Procedure Specimens Taken Check Surgery Details section.
--- OUTSIDE RECORDS SUMMARY | 2024-07-20 11:36 | XMS_ITS | Encounter Summary ---
Author Organization [facility] [address] [place] [address] Care Team Providers Care Network Relay Tester Name Role Phone No Primary/Referring, Phy Primary Care Provider Unavailable Encounter Details Date Type Department Care Team (Latest Contact Info) Description 09/30/2018 Correspondence [facility] [address] [place] [address], [address] [place] [address] REFERRAL AND AUTHORIZATION Social History Tobacco Use [...] 06/01/2025 9:00 AM CDT Appointment Neurology at [facility] [address] [facility] [place] [address] Fabio De La Torre MD 295 [place] [address] documented as of this encounter Visit Diagnoses Not on filedocumented in this encounter Care Teams Network Relay Tester Relationship Specialty Start Date End Date No Primary/Referring, Phy PCP - General 05/03/21 documented as of this encounter
--- OUTSIDE RECORDS SUMMARY | 2024-07-20 11:36 | XMS_ITS | Clinical Summary ---
Author Organization Pending sale to [facility] Address [address] [place] [address] Care Team Providers Care Industrial Engineering Technologist Name Role Phone No Primary/Referring, Phy Primary Care Provider Unavailable Source Comments You are receiving this document as you are listed as the primary care provider,follow-up provider, or the patient has been referred to you for consultation.This is in compliance with the Medicare and[facility] EHR Incentive Program,which states Providers who transition their patient to another setting of careor provider of care or refers their patient to another provider of care shouldprovide summary care record for each transition of care or referral. Pending sale to [facility] Allergies No known active allergies Medications Medication [...] AM CDT Office Visit Neurology at [facility] [address] [place] [address] Fabio De La Torre MD Seizure disorder (HRC) (Primary Dx) 05/28/2024 Refill Neurology at [address] [place] [address] Fabio De La Torre MD Refill (levETIRAcetam [...] 06/01/2025 9:00 AM CDT Appointment Neurology at [address] [place] [address] Fabio De La Torre MD 295 [place] [address] Health Maintenance Due Date Last Done Comments [...] age to complete this topic Care Teams Industrial Engineering Technologist Relationship Specialty Start Date End Date No Primary/Referring, Riri PCP - General 05/03/21
--- OUTSIDE RECORDS SUMMARY | 2024-07-20 11:36 | XMS_ITS | Referral Summary ---
Author Organization [facility] Address [address] [place] [address] Care Team Providers Care Lacquer Sizer Name Role Phone Margie Dee M.D. Primary Care Provider [phone] Source Comments Patient records contain information from all sites at [facility]. For routine questions regarding patient records, call [phone] during business hours, M-F 8:00 AM - 5:00 PM Central Time. Record requests for emergency care only can be directed to [phone] at any time.[facility] Encounters Date Type Department Care Team Description 06/17/2024 Refill Department of Family Medicine, [facility], in [address] [address] Margie Dee M.D. Med Refill [...] (09/21/2019): Added automatically from request for surgery [id number] Immunizations Name Administration Dates Next Due SARS-COV-2 [...] pur e alcohol) beer once a month [facility] [employer] Answer Date Recorded In the past 12 months has e [employer], gas, oil, or water [facility] threatened to shut off services in your [...] often do you attend chur ch or jew services? More than 4 times per year 10/06/2022 Do you belong to any clubs o r organizations such as gnosticist groups, unions, fraternal or athletic groups, or [...] Answer Date Recorded PHQ-2 Score 0 10/21/2023 [facility] of Occupat ional Health - Occupational Stress [...] your living situation today? I have a [facility] place to live 11/12/2023 Education Answer Date Recorded What is the highest level of school you have completed or the highest degree you have received? 12th grade 10/06/2022 Sex and Gender Information Value Date Recorded Sex Assigned at Male 10/06/2022 8:25 PM PUMP SERVICE SUPERVISOR Legal Sex Male 11:39 PM PUMP SERVICE SUPERVISOR Gender Identity Male 10/06/2022 8:25 PM PUMP SERVICE SUPERVISOR Sexual Orientation Straight 10/06/2022 8: 25 PM PUMP SERVICE SUPERVISOR Last Filed Vital Signs Vital Sign Reading [...] METABOLIC PANEL, S/P Routine 10/11/2022 2:11 PM PUMP SERVICE SUPERVISOR Hypertension Essential Primary from Last 3 Months [...] M.D. LAB BLOOD ADD-ON Final Resu lt [facility] [address] [place] [address], [facility] [place] [address] * Basic Metabolic Panel (10/11/2022 2:11 PM PUMP SERVICE SUPERVISOR) Potassium, P 3.9 3.6 - 5.2 mmol/L 10/11/2022 2:49 PM PUMP SERVICE SUPERVISOR CNFL Sodium, P 135 135 - 145 mmol/L 10/11/2022 2:49 PM PUMP SERVICE SUPERVISOR CNFL Chloride, P 98 98 - 107 mmol/L 10/11/2022 2:49 PM PUMP SERVICE SUPERVISOR CNFL Bicarbonate, P 29 22 - 29 mmol/L 10/11/2022 2:49 PM PUMP SERVICE SUPERVISOR CNFL Anion Gap, P 8 7 - 15 10/11/2022 2:49 PM PUMP SERVICE SUPERVISOR CNFL BUN (Blood Urea Nitrogen), P 19 8 - 24 mg/dL 10/11/2022 2:49 PM PUMP SERVICE SUPERVISOR CNFL Creatinine 0.96 0.74 - 1.35 mg/dL 10/11/2022 2:49 PM PUMP SERVICE SUPERVISOR CNFL Estimated GFR (eGFR) 86 >=60 mL/min/BSA 10/11/2022 2:49 PM PUMP SERVICE SUPERVISOR CNFL Comment: Estimated GFR calculated using the 2020 CKD_EPI creatinine equation. Calcium, Total, P 9.3 8.8 - 10.2 mg/dL 10/11/2022 2:49 PM PUMP SERVICE SUPERVISOR CNFL Glucose, P 106 70 - 140 mg/dL 10/11/2022 2:49 PM PUMP SERVICE SUPERVISOR CNFL Blood (Blood, Venous) 10/11/2022 2:11 PM PUMP SERVICE SUPERVISOR 10/11/2022 2:17 PM PUMP SERVICE SUPERVISOR us Nadia Coles M.D. LAB BLOOD ADD-ON Final Res ult [facility] [address] [place] [address], [facility] CNFL in [address] [place] [address] from Last 3 Months or Most Recently Relevant to Health Maintenance Insurance [facility] MEDICARE Advance Directives For more information, please contact: [phone] * Full Code (Latest Code Status on File) Date Activated Date Inactivated Comments 11/27/2019 9:04 AM 11/27/2019 11:58 AM Question Answer Comments Full Code: Discussed Care Teams Lacquer Sizer Relationship Specialty Start Date End Date Margie Dee M.D. [address] [place] [phone] PCP - General Family Medicine 03/02/24
--- OUTSIDE RECORDS SUMMARY | 2024-07-20 11:36 | XMS_ITS | Encounter Summary ---
Author Organization [facility] Address [address] [place] [address] [place] [address] Care Team Providers Care Operation Supervisor Name Role Phone No Primary/Referring, Phy Primary Care Provider Unavailable Encounter Details Date Type Department Care Team (Late st Contact Info) Description 11/17/2014 Correspondence [facility] Occupational and Environmental Medicine [address] [place] [address] Neeru Velasco MD [address] [facility] [place] [address] MEDICAL EXAMINERS REPORT Social History Tobacco Use [...] AM CDT Appointment Neurology at [facility] [address] [facility] [address] Fabio De La Torre MD 295 [place] [address] documented as of this encounter Visit Diagnoses Not on filedocumented in this encounter Care Teams Operation Supervisor Relationship Specialty Start Date End Date No Primary/Referring, Phy PCP - General 05/03/21 documented as of this encounter
--- OUTSIDE RECORDS SUMMARY | 2024-07-20 11:36 | XMS_ITS | Encounter Summary ---
Author Organization [facility] Address [address] [place] [address] Care Team Providers Care Payroll Officer Name Role Phone No Primary/Referring, Phy Primary Care Provider Unavailable Reason for Visit * Reason Comments Follow-up Encounter Details Date Type Department Care Team (Latest Contact Info) Description 06/01/2024 10:00 AM CDT Office Visit Neurology at [facility] [address] [facility] [place] [address] Fabio De La Torre MD 295 [place] [address] Seizure disorder (HRC) (Primary Dx) Social History [...] MD 06/01/2024, 9:53 AM Department of Neurology [facility] CHIEF COMPLAINT: Chief Complaint Patient presents with [...] Resource Strain: Low Risk (10/06/2022) Received from [facility] Overall Financial Resource Strain (CARDIA) Difficulty of Paying Living Expenses: Not very hard Food Insecurity: No Food Insecurity (11/12/2023) Received from [facility] Hunger Vital Sign Worried About Running Out of Food in the Last Year: Never true Ran Out of Food in the Last Year: Never true Transportation Needs: No Transportation Needs (11/12/2023) Received from [facility] PRAPARE - Transportation Lack of Transportation (Medical): No Lack of Transportation (Non-Medical): No Physical Activity: Inactive (11/12/2023) Received from [facility] Exercise Vital Sign Days of Exercise per Week: 0 days Minutes of Exercise per Session: 0 min Stress: No Stress Concern Present (10/06/2022) Received from [facility] [place] of Occupational Health - Occupational Stress Questionnaire Feeling of Stress : Not at all Social Connections: Moderately Integrated (10/06/2022) Received from [facility] Social Connection and Isolation Panel [NHANES] Frequency of Communication with Friends and Family: More than three times a week Frequency of Social Gatherings with Friends and Family: Twice a week Attends Scientology Services: More than 4 times per year Active Member of Clubs or Organizations: No Attends Club or Organization Meetings: Never Marital Status: Intimate Partner Violence: Not At Risk (10/06/2022) Received from [facility] Humiliation, Afraid, Rape, and Kick questionnaire Fear of Current or Ex-Partner: No Emotionally Abused: No Physically Abused: No Sexually Abused: No Housing Stability: Low Risk (11/12/2023) Received from [facility] Housing Stability What is your living situation today?: I have a steady place to live No family history on file. documented in this encounter Nursing Notes * Kaylee Gar - 06/01/2024 10:00 AM CDT Received from [place] [facility]. Faxed to [facility] at [phone]. Confirmation received. Form sent to scanning. Thanks. Kaylee Gar 06/02/2024, 7:13 AM documented in this encounter Plan of Treatment Upcoming Encounters Date Type Department Care Team (Late st Contact Info) Description 06/01/2025 9:00 AM CDT Appointment Neurology at [facility] [address] [facility] [place] [address] Fabio De La Torre MD [address] [place] [address] documented as of this encounter Visit Diagnoses Diagnosis Seizure disorder (HRC)- Primary Unspecified epilepsy without mention of intractable epilepsy documented in this encounter Care Teams Payroll Officer Relationship Specialty Start Date End Date No Primary/Referring, Phy PCP - General 05/03/21 documented as of this encounter
--- OUTSIDE RECORDS SUMMARY | 2024-07-20 11:36 | XMS_ITS | Encounter Summary ---
Author Organization [facility] Address [address] [place] [address] Care Team Providers Care Multiple Effect Evaporator Operator Name Role Phone No Primary/Referring, Phy Primary Care Provider Unavailable Encounter Details Date Type Department Care Team (Late st Contact Info) Description 03/10/2015 Correspondence [facility] Occupational and Environmental Medicine [address] [place] [address] [facility] MED NOTES Social History Tobacco Use Types [...] AM CDT Appointment Neurology at [facility] [address] [place] [address] Fabio De La Torre MD 295 [place] [address] documented as of this encounter Visit Diagnoses Not on filedocumented in this encounter Care Teams Multiple Effect Evaporator Operator Relationship Specialty Start Date End Date No Primary/Referring, Phy PCP - General 05/03/21 documented as of this encounter
--- OUTSIDE RECORDS SUMMARY | 2024-07-20 11:36 | XMS_ITS | Encounter Summary ---
Author Organization [facility] Address [address] [place] [address] Care Team Providers Care Lead Javascript Developer Name Role Phone No Primary/Referring, Phy Primary Care Provider Unavailable Reason for Visit * Reason Comments Refill levETIRAcetam (KEPPR A) 750 MG tablet [Pharmacy Med Name: levETIRAcetam Oral Tablet 750 MG] Encounter Details Date Type Department Care Team (Late st Contact Info) Description 05/28/2024 Refill Neurology at [facility] [place] [address] [place] [address] Shania Munguia MD 295 [place], [place] [phone] Refill (levETIRAcetam (KEPPRA) 750 MG tablet [Pharmacy [...] daily (unchanged) [employer] Embedded Refills, Reference: [id number], 05/28/2024 2:36:35 AM CDT, Pool: LUZMA NEURO REFILL RN ([id number]) documented in this encounter Plan of Treatment Upcoming Encounters Date Type Department Care Team (Late st Contact Info) Description 06/01/2025 9:00 AM CDT Appointment Neurology at [address] [place] [address] Shania Munguia MD [address] [place] [id number] documented as of this encounter Visit Diagnoses Not on filedocumented in this encounter Care Teams Lead Javascript Developer Relationship Specialty Start Date End Date No Primary/Referring, Phy PCP - General 05/03/21 documented as of this encounter
--- OUTSIDE RECORDS SUMMARY | 2024-07-20 11:36 | XMS_ITS | Encounter Summary ---
Author Organization [facility] Address [address] [place] [address] Care Team Providers Care Community Service Aide Name Role Phone No Primary/Referring, Phy Primary [...] AM CDT Appointment Neurology at [facility] [address] [place] [address] Fabio De La Torre MD [address] [place] [address] documented as of this encounter Visit Diagnoses Not on filedocumented in this encounter Care Teams Community Service Aide Relationship Specialty Start Date End Date No Primary/Referring, Phy PCP - General 05/03/21 documented as of this encounter
--- OUTSIDE RECORDS SUMMARY | 2024-07-20 11:36 | XMS_ITS | Encounter Summary ---
Author Organization [facility] Address [address] [place] [id number] Care Team Providers Care Reserves Clerk Name Role Phone Margie Dee M.D. Primary Care Provider [phone] Reason for Visit * Reason Comments Med Refill Encounter Details Date Type Department Care Team (Late st Contact Info) Description 06/17/2024 Refill Department of Family Medicine, [facility], in [address] [phone] Margie Dee M.D. [address] [place] [phone] Med Refill Social History Tobacco Use Types Packs/Day Years Used Date Smoking Tobacco: Some Days Cigarettes 0.5 20 Smokeless Tobacco: Never Comments:8 cigarettes/day Alcohol Use Standard Drinks/Week Comments Not Currently 0 (1 standard drink = 0.6 oz pur e alcohol) beer once a month [facility] Utilities Answer Date Recorded In the past 12 months has [employer], gas, oil, or water [employer] threatened to shut off services in your [...] How often do you attend chur or rastafarian services? More than 4 times per year 10/06/2022 Do you belong to any clubs o r organizations such as lutheran groups, unions, fraternal or athletic groups, or [...] Answer Date Recorded PHQ-2 Score 0 10/21/2023 [facility] Health - Occupational Stress Questionnaire Answer Date [...] your living situation today? I have a [facility] place to live 11/12/2023 Education Answer Date Recorded What is the highest level of school you have completed or the highest degree you have received? 12th grade 10/06/2022 Sex and Gender Information Value Date Recorded Sex Assigned at Male 10/06/2022 8:25 PM ARCH CUSHION SKIVING MACHINE OPERATOR Legal Sex Male 11:39 PM ARCH CUSHION SKIVING MACHINE OPERATOR Gender Identity Male 10/06/2022 8:25 PM ARCH CUSHION SKIVING MACHINE OPERATOR Sexual Orientation Straight 10/06/2022 8: 25 PM ARCH CUSHION SKIVING MACHINE OPERATOR documented as of this encounter Plan of Treatment Not on file documented as of this encounter Visit Diagnoses Not on filedocumented in this encounter Care Teams Reserves Clerk Relationship Specialty Start Date End Date Margie Dee M.D. SAMI: [phone] [address] [place] [phone] PCP - General Family Medicine 03/02/24 documented as of this encounter
--- OUTSIDE RECORDS SUMMARY | 2024-07-20 11:36 | XMS_ITS | Encounter Summary ---
Author Organization [facility] [address] [place] [id number] Care Team Providers Care Procedure Tech Name Role Phone No Primary/Referring, Phy Primary Care Provider Unavailable Encounter Details Date Type Department Care Team (Late st Contact Info) Description 09/30/[address], [address] [place] [address] [facility] MEDICINE PATIENT AUTH TO VIEW [facility] CHART Social History Tobacco Use Types [...] 9:00 AM CDT Appointment Neurology at [facility] [address] [facility] [place] [address] Fabio De La Torre MD [address] [place] [address] documented as of this encounter Visit Diagnoses Not on filedocumented in this encounter Care Teams Procedure Tech Relationship Specialty Start Date End Date No Primary/Referring, Palmery PCP - General 05/03/21 documented as of this encounter
--- OUTSIDE RECORDS SUMMARY | 2024-07-20 11:36 | XMS_ITS | Encounter Summary ---
Author Organization [facility] Address [address] [place] [id number] Care Team Providers Care Data Center Technician Name Role Phone Margie Dee M.D. Primary Care Provider [phone] Encounter Details Date Type Department Care Team (Late st Contact Info) Description 03/24/2024 Clinical Communication Preoperative Evaluation Center in [address] [phone] Cristine Ruiz, RKennedyN. [address] [place] [phone] Social History Tobacco Use Types Packs/Day Years Used Date Smoking Tobacco: Some Days Cigarettes 0.5 20 Smokeless Tobacco: Never Comments:8 cigarettes/day Alcohol Use Standard Drinks/Week Comments Not Currently 0 (1 standard drink = 0.6 oz pur e alcohol) beer once a month [facility] Utilities Answer Date Recorded In the past 12 months has [facility] [employer] [place], gas, oil, or water [email or web address] threatened to shut off services in your [...] How often do you attend chur or gnosticist services? More than 4 times per year 10/06/2022 Do you belong to any clubs o r organizations such as cheondoism groups, unions, fraternal or athletic groups, or [...] Answer Date Recorded PHQ-2 Score 0 10/21/2023 [facility] Occupat ional Health - Occupational Stress [...] your living situation today? I have a [facility] place to live 11/12/2023 Education Answer Date Recorded What is the highest level of school you have completed or the highest degree you have received? 12th grade 10/06/2022 Sex and Gender Information Value Date Recorded Sex Assigned at Male 10/06/2022 8:25 PM BROOM HANDLE DIPPER Legal Sex Male 11:39 PM BROOM HANDLE DIPPER Gender Identity Male 10/06/2022 8:25 PM BROOM HANDLE DIPPER Sexual Orientation Straight 10/06/2022 8: 25 PM BROOM HANDLE DIPPER documented as of this encounter Miscellaneous Notes [...] questions at this time. Warm transfer to [facility] was completed. documented in this encounter Plan of Treatment Not on file documented as of this encounter Visit Diagnoses Not on filedocumented in this encounter Care Teams Data Center Technician Relationship Specialty Start Date End Date Margie Dee M.D. [address] [place] [phone] PCP - General Family Medicine 03/02/24 documented as of this encounter
== END 2024-07-20 11:32 | disposition home or self-care (01) ==
PROVIDERS: PCP Nurse Practitioner Family; Visit Provider Nurse Practitioner Family
DX: G25.81 Restless legs syndrome (principal); E87.1 Hypo-osmolality and hyponatremia; I10 Essential (primary) hypertension
CPT/HCPCS: 82728; 83540; 83550; 85025

== ENCOUNTER 2024-09-29 05:39 | Outpatient (CLI) | payer MEDICARE, BC, SELFPAY | END 2024-09-29 05:40 | disposition home or self-care (01) | PROVIDERS: PCP Nurse Practitioner Family; Visit Provider Nurse Practitioner Family | DX: D50.9 Iron deficiency anemia, unspecified (principal) | CPT/HCPCS: 83540; 85025 ==

== ENCOUNTER 2024-10-12 09:00 | Outpatient (RCR) | payer MEDICARE, BC, SELFPAY ==
--- NOTE | 2024-08-10 14:05 | OT.OPODN ---
OT Outpatient Ortho Daily Note OT Outpatient Ortho Daily Note* Start: 08/04/24 17:57 Freq: Status: Active Protocol: Document 08/10/24 13:35 LCN (Rec: 08/10/24 14:02 LCN [email or web address]) E-signed By Katelin Anglin, OTR/L, CLT Type of Note Type of Note Type of Note Daily Note,Note to MD Visit Number 2 Insurance Information Insurance Information Blue Cross/Blue Shield, Medicare B Outpatient History/Precautions Current Condition/Medical Diagnosis Referring Provider Dr. Papito Pierce Medical Diagnoses R hand cellulitis Treatment Diagnosis edema, hand stiffness, weakness. Medical Conditions Heart Condition Other Conditions REcent onset of restles legs and was put on Lasix for B LE edema 04/23/24. Medical/Functional History Medical History Reviewed Yes Prior Level of Function/Mobility Lives with supportive of 13 yrs. Has a small post longterm job 12-15 hrs/week. 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 Ortho Subjective Subjective Subjective Pt did well with home program starting 08/04/24 ( contrast baths, SROM ex of R hand , wrist, digits, doing 3-4 x/day , being careful ot to force motion) and was finally able to close his fist again by Saturday08/07/24. Had finished his last oral abx on 07/31/24, same date as seeing Dr. Pierce. Saturday08/08/24 started having fullness in the fingers return and pain all through the night, did better during the day and then worse again at Sun night, sleeping only two hours w the pain. Web space edema now measures 24.7 cm ( was 23.5 cm at eval) and increased to 8.5 cm at IF proximal phalanx ( up from 7.7 cm). Composite AROM of digit flexion now IF/MF/RF/SF is 6.5 / 6.2 / 3.3 / 2.7 cm, hand is very stiff and achy. OTR calls nursing line for Dr. Pierce, who kindly returned the call inside of of our session today. Pt to see MD tomorrow 1:30 pm. Pt to cont his contrast baths and gentle HEP unless it is too painful to do it. OK to wear compression glove if it feels comfortable. Eval 08/04/24--Junior Reeves is a pleasant 69 y/o male who sought help at the [facility] for rapid onset of r hand cellulitis without known trauma, possibly pint of entry small abrasion on R MF MCP head. Wa put on Bactrim and advised to go to ER if condition worsens. ER and ortho consult happened on and changed agents to Cefalexin and referred to OT for further mgmt of edema and hand stiffness. Hand had swollen to 3 x the size of L hand per photo. Edema /redness /rubor extnded to below elbow. Pain Assessment Pain Pain Yes Pain Comments 08/04/24-- 04/01 to decorating instructor with resistance of 12 C coffee pot. OT OP Daily Ortho Note/Assessment Manual Therapy Manual Therapy Minutes (minutes) 40 Manual Therapy Comments OTR completes gentle LLPS, joint mobilizations for R hand , each digit, all 4 wrist planes, supination, pronation, circumduction and thumb planes. 15 min additional was unbillable, spent calling RN/ MD team and having call returned. Self-Care/Home Management Self-Care/Home Management Minutes ( 0 minutes) Self-Care/Home Management Comments Self mgmt strategies instructed for contrast baths, compression glove R large, self MLD massage/elevation and SROM on table top 2 x/day. . Total Occupational Therapy Time Occupational Therapy Minutes 40 Home Program Home Program Home Program Initiated Home Program Specifics contrast baths, compression glove, self MLD massage/ elevation and SROM on table top. Range of Motion and Strength Wrist Range of Motion and Strength Wrist Range of Motion and Strength As of 08/04/24-- R wrist to 45 of 55 WR EX, and 55 of 75 WR FL. Composite digit flexion (nail bed to distal palmar crease). IF/MF/RF/SF 2.3 / 3.8 / 2.8 / 1.2 cm (where WNL is .5 to 1.0 cm). EDEMA/SKIN-- Pt has been able to retain his skin, which is now thick dry, brawny with general pink/cocoa staining w flushed hue, mild healing warmth. Palmar crease 23.5 cm R and 21.9. Wrist crease is 20cm R and 18.5 cm L. Hand/Finger/Thumb Range of Motion and Strength Hand/Finger/Thumb Range of Motion and Edema 08/10/24-- Strength eb space edema now measures 24 .7 cm ( was 23.5 cm at eval) and increased to 8.5 cm at IF proximal phalanx ( up from 7. 7 cm) Goniometric Comments Goniometric Comments Goniometric Comments 08/10/24-- Composite AROM of digit flexion now IF/MF/RF/SF is 6.5 / 6.2 / 3.3 / 2.7 cm, hand is very stiff and achy. Hand Pinch/Deck Specialist Strength Hand Pinch/Deck Specialist Strength Hand Pinch/Deck Specialist Strength Left Hand,Right Hand Left Hand Deck Specialist Strength Position 1 in Elbow 15 Flexion (lbs) Right Hand Deck Specialist Strength Position 1 in Elbow 91 Flexion (lbs) OT Problems Problems Problems Decreased Strength,Decreased Range of Motion,Pain,Sensory Sensitivity,Lifting,Gripping, Pinching Patient Potential Excellent Assessment Assessment Assessment Pt having return of inital hand edema with pain, skin tenderness and stiffness. Sees MD tomorrow. Guided to use Tylenol Extra strength ii/ q 6 hrs. Use hot/cold baths as needed/as long as helpful. Given Umair's?difficulty with edema, pain, ROM and significant strength loss of R hand/wrist limiting daily tasks, she would benefit from skilled OT to address these areas. Occupational Therapy Treatment Plan - OP Potential Rehabilitation Potential Excellent Set Goals Goals Set with Patient Yes Goals Goals In 8 weeks, Umair will demonstrate:? 1) Decreased pn to <2/10 80% of the time with sustained gripping, tool use and small object assembly. 2) I HEP for stretching, gradual strengthening, edema mgmt and self mgmt strategies. 3) improved R decorating instructor strength to 50# and pinch to 15# with R hand pain < 1/10. Treatment Plan Treatment Plan Evaluation,Edema Control,Joint Mobilization,Manual Therapy, Therapeutic Exercise,Self Care /Home Management,Education Expected Frequency 1-2x Week Expected Duration 6-8 Weeks Occupational Therapy Billing Units Treatment Minutes Untimed Treatment Minutes 15 Timed Treatment Minutes 40 Total Treatment Minutes 55 Billing Units Manual Therapy 3 Certification Statement Certification Statement I Certify That: Therapy Services Provided
--- NOTE | 2024-10-12 18:50 | OT.OPODN ---
OT Outpatient Ortho Daily Note OT Outpatient Ortho Daily Note* Start: 08/04/24 17:57 Freq: Status: Active Protocol: Document 10/12/24 18:40 LCN (Rec: 10/12/24 18:50 LCN [id number]) E-signed By Katelin Anglin, OTR/L, CLT Type of Note Type of Note Type of Note Daily Note Visit Number 10 Insurance Information Insurance Information Blue Cross/Blue Shield, Medicare B Outpatient History/Precautions Current Condition/Medical Diagnosis Referring Provider Dr. Papito Pierce Medical Diagnoses R hand cellulitis Treatment Diagnosis edema, hand stiffness, weakness. Medical Conditions Heart Condition Other Conditions REcent onset of restles legs and was put on Lasix for B LE edema 04/23/24. Medical/Functional History Medical History Reviewed Yes Prior Level of Function/Mobility Lives with supportive of 13 yrs. Has a [employer] job 12-15 hrs/week. 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 Ortho Subjective Subjective Subjective Daily am stiffness, achy and fatigues quickly with gripping . Wears glove most of the time. Can pour from full gallon of milk, 1/10 pain to welding machine operator gas with full resistance, still fatigues easily but improving. Edema is down and skin is loose. Eval 08/04/24--Junior Reeves is a pleasant 69 y/o male who sought help at the [facility] for rapid onset of r hand cellulitis without known trauma, possibly pint of entry small abrasion on R MF MCP head. Wa put on Bactrim and advised to go to ER if condition worsens. ER and ortho consult happened on and changed agents to Cefalexin and referred to OT for further mgmt of edema and hand stiffness. Hand had swollen to 3 x the size of L hand per photo. Edema /redness /rubor extended to below elbow . Pain Assessment Pain Pain Yes Pain Comments 10/02/24 with ful effort welding machine operator gas 48#. OT OP Daily Ortho Note/Assessment Therapeutic Exercise Therapeutic Exercise Minutes (minutes) 8 Therapeutic Exercise Comments Upgraded to green putty. Reviewed current HEP including 30# w welding machine operator gas bands (pt instructed how to self- progress: increase by 5# when 30 reps is easy) reverse blocking,comp digit flexion stretches for IFto SF and flat to rolled fist glides 2x/day. gripper 30 reps 1-2x/day. Manual Therapy Manual Therapy Minutes (minutes) 35 Manual Therapy Comments OTR mobilzes MCP and PIP row, then completes gentle LLPS, joint mobilizations for R hand , each digit, hook + ext of MCP's,table top, all 4 wrist planes, supination, pronation, circumduction and thumb planes. Self-Care/Home Management Self-Care/Home Management Comments Issued info to get welding machine operator gas dot compression gloves for work for B hands. Total Occupational Therapy Time Occupational Therapy Minutes 43 Home Program Home Program Home Program Revised,Compliant Home Program Specifics 09/11/24-- aqua putty, 20# w welding machine operator gas bands. 08/25/24-- reverse blocking, comp digit flexion stretches for IFto SF and flat to rolled fist glides 2x/day. gripper 30 reps 1-2x/day. 08/21/24-- light putty welding machine operator gas, 2 pt alternating pinch, K pinch , adduction full digit extension. (hold hook flexion until more comfortable) contrast baths, compression glove, self MLD massage/ elevation and SROM on table top. Range of Motion and Strength Wrist Range of Motion and Strength Wrist Range of Motion and Strength 10/12/24--WR EX to 70 AAROM, ROM to 65 and WR FL to 85 AAROM, 68 AROM. Composite flexion to .7 IF and .5 cm MF, 0cm rf and SF of R hand. of 09/01/24-- WR EX to 63 and WR FL to 85.Improved welding machine operator gas to 48# R and 104# L. As of 08/04/24-- R wrist to 45 of 55 WR EX, and 55 of 75 WR FL. Composite digit flexion (nail bed to distal palmar crease). IF/MF/RF/SF 2.3 / 3.8 / 2.8 / 1.2 cm (where WNL is .5 to 1.0 cm). EDEMA/SKIN-- Pt has been able to retain his skin, which is now thick dry, brawny with general pink/cocoa staining w flushed hue, mild healing warmth. Palmar crease 23.5 cm R and 21.9. Wrist crease is 20cm R and 18.5 cm L. Hand/Finger/Thumb Range of Motion and Strength Hand/Finger/Thumb Range of Motion and Edema Strength 09/04/24-- web space edema 21. 5, wrist to 18.7 cm 5 cm above wrist 19.5 cm TH PP 2.1 cm, IF PP 7.4 cm. 08/10/24--web space edema now measures 24.7 cm ( was 23.5 cm at eval) and increased to 8. 5 cm at IF proximal phalanx ( up from 7.7 cm) Goniometric Comments Goniometric Comments Goniometric Comments 09/29/24-- AROM of digit flexion now IF/MF/RF/SF is .7 / .5 / 0 / 0 cm. 09/11/24--AROM of digit flexion now IF/MF/RF/SF is 1.5 / 1.2 / 1.1 / .3 cm. 09/04/24-- AROM of digit flexion now IF/MF/RF/SF is 1.5 / 1.8 / 1.3 / 1.0 cm. 09/01/24-- AROM of digit flexion now IF/MF/RF/SF is 1.4 / 1.8 / 1.3 / .7 cm. 08/25/24-- AROM of digit flexion now IF/MF/RF/SF is2.2 / 2.6 / 1.7 / 1.3 cm. 08/19/24-- Composite AROM of digit flexion now IF/MF/RF/SF is 3.8 / 3.8 / 3.2 / 1.7cm. Composite AAROM is 2.4 / 2.7 / 1.8 / 1.3 cm 08/10/24-- Composite AROM of digit flexion now IF/MF/RF/SF is 6.5 / 6.2 / 3.3 / 2.7 cm, hand is very stiff and achy. Hand Pinch/Director Learning Services Strength Hand Pinch/Director Learning Services Strength Hand Pinch/Director Learning Services Strength Left Hand,Right Hand Left Hand Director Learning Services Strength Position 1 in Elbow 15 Flexion (lbs) Right Hand Director Learning Services Strength Position 1 in Elbow 91 Flexion (lbs) Comments Comments 09/29/24--30, 38, 44# welding machine operator gas 2/10 pain. 09/11/24--42# Director Learning Services R, 3-4/10 pn, momentary 09/01/24-- 25# Director Learning Services R, 6/10 pn OT Problems Problems Problems Decreased Strength,Decreased Range of Motion,Pain,Sensory Sensitivity,Lifting,Gripping, Pinching Patient Potential Excellent Assessment Assessment Assessment Pt's composite digit flexion is improving with improved resistance, less pain/edema, cont working on endurance. ( Working four hour shifts, wears [facility] [employer] [employer] wrist cock up to reduce hand fatigue) Given Umair's?difficulty with edema, pain, ROM and significant strength loss of R hand/wrist limiting daily tasks, she would benefit from skilled OT to address these areas. Occupational Therapy Treatment Plan - OP Potential Rehabilitation Potential Excellent Set Goals Goals Set with Patient Yes Goals Goals After 10 visits of OT, Umair demonstrates:? 1) Decreased pn to <2/10 80% of the time with sustained gripping, tool use and small object assembly. 10/12/24-- GOAL MET. 2) I HEP for stretching, gradual strengthening, edema mgmt and self mgmt strategies. 10/12/24-- GOAL MET 3) improved R welding machine operator gas strength to 50# and pinch to 15# with R hand pain < 1/10. 10/12/24-- GOAL WILL CONT WITH HEP-- 10/12/24--WR EX to 70 AAROM, ROM to 65 and WR FL to 85 AAROM, 68 AROM. Composite flexion to .7 IF and .5 cm MF, 0cm rf and SF of R hand. of 09/01/24-- WR EX to 63 and WR FL to 85.Improved welding machine operator gas to 48# R and 104# L. Treatment Plan Treatment Plan Evaluation,Edema Control,Joint Mobilization,Manual Therapy, Therapeutic Exercise,Self Care /Home Management,Education Expected Frequency 1-2x Week Expected Duration 6-8 Weeks Occupational Therapy Billing Units Treatment Minutes Timed Treatment Minutes 43 Total Treatment Minutes 43 Billing Units Manual Therapy 2 Therapeutic Exercise 1 Certification Statement Certification Statement I Certify That: Therapy Services Provided Discharge Note Discharge Note Discharge Summary per above goal progress Date of First Visit for Therapy 08/04/24 Date of Last Visit for Therapy 10/12/24 Initial Primary Functional Limitations/ per above Concerns Interventions Provided During Treatment Evaluation,Edema Control,Joint Mobilization,Manual Therapy, Wound Care/Scar Management, Therapeutic Exercise,Self Care /Home Management,Education Recommendations/Reason for Discharge Met All Therapy Goals,Progress Cont w/HEP
== END 2024-10-13 13:24 | disposition home or self-care (01) ==
PROVIDERS: PCP Nurse Practitioner Family; Visit Provider Orthopaedic Surgery Sports Medicine
DX: L03.113 Cellulitis of right upper limb (principal); R60.9 Edema, unspecified; M25.649 Stiffness of unspecified hand, not elsewhere classified; R53.1 Weakness; Z51.89 Encounter for other specified aftercare
CPT/HCPCS: 97110; 97112; 97140; 97165; 97535; X5282

== ENCOUNTER 2025-06-28 10:22 | Outpatient (CLI) | payer MEDICARE, BC, SELFPAY | END 2025-06-28 10:23 | disposition home or self-care (01) | PROVIDERS: PCP Nurse Practitioner Family; Visit Provider Nurse Practitioner Family | DX: Z12.5 Encounter for screening for malignant neoplasm of prostate (principal); Z13.0 Encounter for screening for diseases of the blood and blood-forming organs and certain disorders involving the immune mechanism; I10 Essential (primary) hypertension | CPT/HCPCS: 80053; 80061; 85025; G0103 ==